=== PATIENT | male | born 1935 | race Caucasian/White ===

== ENCOUNTER → 2019-12-25 | Emergency (ER) | payer OTHER ==
[~2019-12-25] VITALS: Ht 180.3 cm; Wt 78.0 kg
[~2019-12-25] MED LIST: ARTIFICIAL TEAR15 M1 OPHTHALMIC; ASPIRIN EC325 M1 PO; ASPIRIN325 PO; ATENOLOL 25 MG25 M1 PO; CRESTOR10 MG PO; CRESTOR20 MG PO; FLUOCINONIDE15 G1; GLUCOPHAGE1000 MG PO; GLUCOPHAGE500 MG PO; IMDUR 30 MG TAB30 M1 PO; LEVOTHYROXINE0.05 MG PO; LIPITOR40 MG PO; NORFLEX100 MG PO; PLAVIX 75 MG TA75 M1 PO; TYLENOL325 M1 PO
[2019-12-25 16:56] LABS: ABSOLUTE NEUTROPHILS 3.3 thou/uL (1.4-8.2); BASOPHILS 0.4 % (0.0-2.0); HEMATOCRIT 36.6 % (42.0-52.0); HEMOGLOBIN 12.1 gm/dL (14.0-18.0); LYMPHOCYTES 19.4 % (24.0-44.0); MCH 31.5 pg (26.0-34.0); MCHC 33.1 g/dL (28.0-37.0); MCV 95.1 fL (80.0-100.0); MONOCYTES 7.5 % (1.0-8.0); PLATELET COUNT 130 thou/uL (150-400); POLYS 70.7 % (36.0-66.0); RBC 3.84 mil/uL (4.50-6.00); RDW 13.2 % (10.5-14.5); WBC 4.7 thou/uL (4.0-11.0)
[2019-12-25 17:08] LABS: ANION GAP 6 mmol/L (7-16); BUN 18 mg/dL (7-18); CALCIUM 8.6 mg/dL (8.5-10.1); CHLORIDE 99 mmol/L (98-107); CO2 27 mmol/L (21-32); CREATININE 1.3 mg/dL (0.7-1.3); GLUCOSE 394 mg/dL (74-106); POTASSIUM 4.8 mmol/L (3.5-5.1); SODIUM 132 mmol/L (136-145)
[2019-12-25 17:18] LABS: ALBUMIN 3.7 g/dL (3.4-5.0); DIRECT BILIRUBIN 0.1 mg/dL (<0.1-0.2); SGOT 14 U/L (15-37); SGPT 12 U/L (30-65); TOTAL BILIRUBIN 0.6 mg/dL (<0.1-1.0); TOTAL PROTEIN 6.9 g/dL (6.4-8.2); TROPONIN-I <0.06 ng/mL (<0.06)
[2019-12-25 17:45] LABS: URINE BILIRUBIN NEGATIVE (Negative); URINE BLOOD NEGATIVE (Negative); URINE CLARITY CLEAR; URINE COLOR YELLOW; URINE GLUCOSE-RANDOM* 3+ (Negative); URINE KETONES NEGATIVE (Negative); URINE LEUKOCYTES-REFLEX NEGATIVE (Negative); URINE NITRITE-REFLEX NEGATIVE (Negative); URINE PROTEIN (DIPSTICK) NEGATIVE (Negative); URINE UROBILINOGEN 0.2 E.U./dl (0.2-1.0)
[2019-12-25 18:30] VITALS: BP 127/63
== END ==
LOC: ER 16:06
PROVIDERS: Emergency Medicine
DX: S80.12XA Contusion of left lower leg, initial encounter (principal); S00.01XA Abrasion of scalp, initial encounter; E11.65 Type 2 diabetes mellitus with hyperglycemia; E78.00 Pure hypercholesterolemia, unspecified; V89.2XXA Person injured in unspecified motor-vehicle accident, traffic, initial encounter; Y93.89 Activity, other specified; Y92.89 Other specified places as the place of occurrence of the external cause; Y99.8 Other external cause status

== ENCOUNTER → 2020-12-04 | Outpatient (CLI) | payer OTHER ==
[~2020-12-04] MED LIST changes: +AMARYL2 MG PO; +HUMALOG100 UNIT/1 SUBQ; +LANTUS SUBQ; +METOPROLOL SUCC25 M1 PO; +RANOLAZINE ER500 MG PO; +VITAMIN B-12500 MCG PO; +VITAMIN D325 MC1 PO
== END ==
LOC: SJCVC 14:59
PROVIDERS: ATTEND Internal Medicine
DX: I25.10 Atherosclerotic heart disease of native coronary artery without angina pectoris (principal); I10 Essential (primary) hypertension; I65.23 Occlusion and stenosis of bilateral carotid arteries; E78.5 Hyperlipidemia, unspecified; E11.9 Type 2 diabetes mellitus without complications; Z79.82 Long term (current) use of aspirin; Z79.84 Long term (current) use of oral hypoglycemic drugs; Z79.899 Other long term (current) drug therapy

== ENCOUNTER 2020-12-20 12:27 | Inpatient (IN) | payer OTHER ==
[~2020-12-20] VITALS: Ht 180.3 cm; Wt 73.3 kg
[~2020-12-20 12:27] MED LIST changes: -AMARYL2 MG PO; -HUMALOG100 UNIT/1 SUBQ; -LANTUS SUBQ; -METOPROLOL SUCC25 M1 PO; -RANOLAZINE ER500 MG PO; -VITAMIN B-12500 MCG PO; -VITAMIN D325 MC1 PO
[2020-12-20 12:31] VITALS: BP 112/54
[2020-12-20] MEDS ORDERED: METOPROLOL SUCC25 M1 PO (12:34)
[2020-12-20] MEDS ORDERED: RANOLAZINE ER500 MG PO (12:36)
[2020-12-20] MEDS ORDERED: AMARYL2 MG PO (12:37)
[2020-12-20 13:21] LABS: ABSOLUTE NEUTROPHILS 10.8 thou/uL (1.4-8.2); BASOPHILS 0.4 % (0.0-2.0); EOSINOPHILS 0.1 % (0.0-3.0); HEMATOCRIT 31.8 % (42.0-52.0); HEMOGLOBIN 10.5 gm/dL (14.0-18.0); LYMPHOCYTES 5.8 % (24.0-44.0); MCH 30.6 pg (26.0-34.0); MCV 92.8 fL (80.0-100.0); MONOCYTES 7.2 % (1.0-8.0); PLATELET COUNT 153 thou/uL (150-400); POLYS 86.5 % (36.0-66.0); RBC 3.43 mil/uL (4.50-6.00); RDW 13.5 % (10.5-14.5); WBC 12.5 thou/uL (4.0-11.0)
[2020-12-20 13:39] LABS: ALBUMIN 3.2 g/dL (3.4-5.0); CALCIUM 8.9 mg/dL (8.5-10.1); CREATININE 1.7 mg/dL (0.7-1.3); POTASSIUM 3.5 mmol/L (3.5-5.1); TOTAL BILIRUBIN 0.8 mg/dL (0.2-1.0); TOTAL PROTEIN 6.7 g/dL (6.4-8.2)
[2020-12-20 14:18] LABS: URINE BILIRUBIN NEGATIVE (Negative); URINE BLOOD TRACE (Negative); URINE CLARITY CLEAR; URINE COLOR YELLOW; URINE GLUCOSE-RANDOM* 3+ (Negative); URINE KETONES 1+ (Negative); URINE LEUKOCYTES-REFLEX NEGATIVE (Negative); URINE NITRITE-REFLEX NEGATIVE (Negative); URINE PROTEIN (DIPSTICK) NEGATIVE (Negative); URINE UROBILINOGEN 0.2 E.U./dl (0.2-1.0)
--- NOTE | 2020-12-20 15:46 | NUR ---
FRIEND-SETH GUILLEN-[phone]. SETH WILL BE VISITOR IN HOSPITAL
[2020-12-20 16:24] LABS: CHOLESTEROL 173 mg/dL (<200); HDL CHOLESTEROL 53 mg/dL (>40); LDL CHOLESTEROL 84 mg/dL (<100); TC:HDL 3.3 Ratio (Not establshd); TRIGLYCERIDE 180 mg/dL (<150); VLDL 36 mg/dL (<40)
--- NOTE | 2020-12-20 16:47 | EKG ---
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: AARON : 1935 Requested By: Storm Turner Order Number: [id number] MD: Art Almaguer Measurements Intervals [place] Rate: 87 P: GA: QRS: 58 QRSD: 103 T: 246 QT: 376 QTc: 453 Interpretive Statements Atrial fibrillation Non specific ST-T changes Compared to ECG 12/20/2020 13:37:44 Ectopic atrial rhythm no longer present Possible ischemia still present Electronically Signed On 12-20-2020 16:47:35 HOME ECONOMICS EXPERT by Art Almaguer [email or web address] <ELECTRONICALLY SIGNED> By: Art Almaguer MD, [facility] 12/20/20 1647 26 26 Art Almaguer MD, FACC /EPI
--- NOTE | 2020-12-20 16:47 | EKG ---
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: : 1935 Requested By: Storm Turner Order Number: [id number] MD: Art Almaguer Measurements Intervals [place] Rate: 90 P: -59 SC: 197 QRS: 45 QRSD: 97 T: 220 QT: 342 QTc: 419 Interpretive Statements Sinus or ectopic atrial rhythm Repol abnrm suggests ischemia, diffuse leads Compared to ECG 03/19/2014 07:51:56 Ectopic atrial rhythm now present Early repolarization now present Sinus bradycardia no longer present ST (T wave) deviation no longer present Prolonged QT interval no longer present Possible ischemia still present Electronically Signed On 12-20-2020 16:47:04 WAREHOUSE SHIPPER by Art Almaguer [email or web address] <ELECTRONICALLY SIGNED> By: Art Almaguer MD, [facility] 12/20/20 1647 1337 36 Art Almaguer MD, [facility] /EPI
[2020-12-20 17:25] VITALS: BP 120/63
[2020-12-20 18:17] VITALS: BP 111/57
--- NOTE | 2020-12-20 20:00 | NUR ---
Pt. arrived to the unit earlier today from the emergency room. His bed alarm sounded and pt. needing the restroom. He ambulated to the bathroom with assistance of one. Now back in bed with bed alarm on.
--- NOTE | 2020-12-21 00:14 | NUR ---
Admission assessment and history is completed. Pt. offers no c/o pain or discomfort. Bed alarm is on.
[2020-12-21 07:44] VITALS: BP 104/59
--- NOTE | 2020-12-21 10:02 | 2DMMODE ---
[facility] [place] [address] 2 D/M-MODE ECHOCARDIOGRAM Name: MARTIN PIPER Room #: 460-P ADM IN M.R.#: [id number] Admission: 12/20/20 Attend Phys: Vi Caldwell MD Discharge: Date of : 34 Report #: [id number] THIS REPORT FOR: cc: Jacques Martinez MD, Christopher B. MD Lundgren, Craig H. MD [facility] ~ APPROVED REPORT Study performed: 12/21/2020 09:09:44 EXAM: Comprehensive 2D, Doppler, and color-flow Echocardiogram Patient Location: Bedside Room #: 460 Status: routine BSA: 1.97 HR: 79 bpm BP: 111/57 mmHg Rhythm: NSR Other Information Study Quality: Adequate Indications NSTEMI vs. Takotsubo. Hx: CABG, stents, DM, HLP. 2D Dimensions RVDd: 31.84 mm IVSd: 12.98 (7-11mm) LVOT Diam: 21.95 (18-24mm) LVDd: 54.19 mm PWd: 10.58 (7-11mm) Ascending Ao: 42.69 (22-36mm) LVDs: 43.13 (25-40mm) Left Atrium: 43.14 (27-40mm) Aortic Root: 38.33 mm Volumes Left Atrial Volume (Systole) Single Plane 4CH: 71.44 mL Single Plane 2CH: 43.09 mL LA ESV Index: 29.00 mL/m2 Aortic Valve AoV Peak Jt.: 0.95 m/s AO Peak Gr.: 3.59 mmHg LVOT Max P.21 mmHg LVOT Max V: 0.74 m/s [facility] [address] [address] 2 D/M-MODE ECHOCARDIOGRAM Name: MARTIN PIPER Room #: [address] [place] [address] [facility].#: [id number] Admission: 12/20/20 Attend Phys: Vi Caldwell Discharge: Date of : 34 Report #: [id number] PHILIP Vmax: 2.97 cm2 Mitral Valve E/A Ratio: 1.6 MV Decel. Time: 186.90 ms MV E Max Jt.: 0.80 m/s MV A Jt.: 0.50 m/s MV PHT: 54.20 ms IVRT: 58.82 ms Pulmonary Valve PV Peak Jt.: 1.34 m/s PV Peak Gr.: 7.23 mmHg Tricuspid Valve TR Peak Jt.: 2.24 m/s TR Peak Gr.: 20.10 mmHg Left Ventricle The left ventricle is normal size. There is normal left ventricular wall thickness. Left ventricular systolic function is mildly decreased. LVEF is 45-50%. Hypokinesis base of inferior and inferolateral schwarz. Moderate diastolic dysfunction Right Ventricle The right ventricle is normal size. The right ventricular systolic function is normal. Atria The left atrium size is normal. The right atrium size is normal. Aortic Valve The aortic valve is mildly calcified, trileaflet. No aortic regurgitation is present. There is no aortic valvular stenosis. Mitral Valve Moderate mitral annular calcification. Mild mitral regurgitation. No evidence of mitral valve stenosis. Tricuspid Valve The tricuspid valve is normal in structure. Trace tricuspid regurgitation. Estimated PAP is 25-30mmHg Pulmonic Valve The pulmonary valve is normal in structure. There is no pulmonic [facility] [address] [place] [address] 2 D/M-MODE ECHOCARDIOGRAM Name: MARTIN PIPER Room #: 460-P [facility] IN M.R.#: [id number] Admission: 12/20/20 Attend Phys: Vi Caldwell Discharge: Date of : 34 Report #: [id number] valvular regurgitation. Great Vessels Aortic root is borderline dilated. 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 IVC is not well visualized. Pericardium There is no pericardial effusion. <Conclusion> Left ventricular systolic function is mildly decreased. LVEF is 45-50%. Hypokinesis base of inferior and inferolateral schwarz. The aortic valve is mildly calcified, trileaflet. No aortic regurgitation or stenosis Moderate mitral annular calcification. Mild mitral regurgitation. Trace tricuspid regurgitation. 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 There is no pericardial effusion. <ELECTRONICALLY SIGNED> By: Bob Jackson MD, FACC 12/21/20 1002 1002 1002 Bob Jackson MD, FACC /INF
--- NOTE | 2020-12-21 14:11 | NUR ---
Received awake on bed. Due medications given as prescribed, able to swallow meds w/o difficulty. On telemetry; no complains and signs of chest pain, crushing sensation and heaviness. On room air. Vital signs stable. On carb controlled diet- assisted and encouraged in eating and drinking; no nausea, no vomiting and no abdominal pain noted. With on and off incontinence; checked frequently and changed as needed. Falls bundle in place. With SL at R FA. With edema at lower extremities- kept elevated. To continue monitoring patient. On blood sugar monitoring, taken and recorded accordingly; with sliding scale insulin ordered, given as prescribed. Pt's family friend visited this AM, wanted to be designated visitor; explained to her re: visitation policy and acknowledged understanding. Admission forms signed. To continue monitoring patient.
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
[2020-12-21 15:56] VITALS: BP 101/52
[2020-12-21 17:48] LABS: CALCIUM 8.3 mg/dL (8.5-10.1); CREATININE 1.5 mg/dL (0.7-1.3); POTASSIUM 3.4 mmol/L (3.5-5.1)
[2020-12-21 18:30] LABS: URINE BILIRUBIN 1+ (Negative); URINE BLOOD NEGATIVE (Negative); URINE CLARITY CLEAR; URINE COLOR YELLOW; URINE GLUCOSE-RANDOM* 2+ (Negative); URINE KETONES TRACE (Negative); URINE LEUKOCYTES-REFLEX NEGATIVE (Negative); URINE PROTEIN (DIPSTICK) 2+ (Negative); URINE SPECIFIC GRAVITY >= 1.030 (1.005-1.035); URINE UROBILINOGEN 0.2 E.U./dl (0.2-1.0)
[2020-12-21 18:35] LABS: URINE NITRITE-REFLEX POSITIVE (Negative)
[2020-12-21 18:42] LABS: CASTS None Seen /LPF (None Seen); SQUAMOUS None Seen /LPF (0-3)
[2020-12-21 18:43] LABS: CRYSTALS None Seen /LPF (None Seen); URINE RBC 3-10 Few /HPF (0-2)
[2020-12-21 20:30] VITALS: BP 100/57
[2020-12-22 00:06] LABS: GLYCOHEMOGLOBIN (HGB A1C) 8.1 % (4.8-5.6)
[2020-12-22 05:09] VITALS: BP 118/58; BP 141/78
[2020-12-22 05:25] LABS: CALCIUM 8.6 mg/dL (8.5-10.1); CREATININE 1.5 mg/dL (0.7-1.3); HEMATOCRIT 28.1 % (42.0-52.0); HEMOGLOBIN 9.4 gm/dL (14.0-18.0); MCHC 33.6 g/dL (28.0-37.0); MCV 92.2 fL (80.0-100.0); POTASSIUM 3.4 mmol/L (3.5-5.1); RBC 3.05 mil/uL (4.50-6.00); RDW 13.8 % (10.5-14.5)
[2020-12-22 06:03] VITALS: BP 106/57
--- NOTE | 2020-12-22 06:29 | NUR ---
Slept fair during the night . Denies any chest pain or discomfort. Voiding per urinal then had episode of incontinence this am. Assisted to reposition on bed for comfort due to generalized weakness. Bed alarm on for safety.
[2020-12-22 08:13] VITALS: BP 118/70
[2020-12-22 08:21] LABS: % SATURATION 12 % (20-39); IRON 26 ug/dL (65-175); TIBC 224 ug/dL (250-450)
--- NOTE | 2020-12-22 09:41 | EKG ---
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 12/22/20 0940 D: [id number] 6 Bob Jackson MD, FACC /EPI
--- NOTE | 2020-12-22 11:53 | NUR ---
Received awake on bed. Due medications given as prescribed, able to swallow meds w/o difficulty. On room air. Vital signs stable. On telemetry; no complains and signs of chest pain, crushing sensation and heaviness. Assisted in ADLs. On carb controlled diet- tolerating well; no nausea, no vomiting and no abdominal pain noted. On blood sugar monitoring, taken and recorded accordingly. With on and off incontinence; able to use urinal, output measured and recorded accordingly; checked frequently and changed as needed. Able to sit out on the chair. With NS at 50cc/hr, infusing well at R FA. With edema at bilateral lower extremities- kept elevated, reminded pt from time to time. No complains of pain made during assessment. Possible rehab admission- rehab liason informed. To continue monitoring patient.
--- NOTE | 2020-12-22 15:09 | NUR ---
CM MET WITH PT'S FRIEND SETH AT BEDSIDE THIS DAY. SHE IS ONE OF THE FAMILY FRIENDS THAT PT IS STAYING WITH CURRENTLY. SHE INDICATED THAT PREFERENCE IS FOR PT TO ULTIMATLY MOVE INTO HIS OWN [facility]. [facility] IS PREFERRED AND THEY ARE ASSESSING.
[2020-12-22 17:13] VITALS: BP 118/58
[2020-12-22 19:34] VITALS: BP 122/62
--- NOTE | 2020-12-23 04:38 | NUR ---
VSS-AFEBRILE. LUNGS CLEAR-ROOM AIR. C/O BURNING WITH URINATION, AND BLADDER SPASMS. BLADDER SCAN REVEALED <30ML WITH POST VOID REIDUAL CHECK. REFUSED ANY MEDICATION FOR PAIN OR SPASMS. ENCOURAGED FLUIDS URINE APPEARED VERY DARK AND CONCENTRATED. VERBALIZED UNDERSTANDING. FALL PRECAUTIONS IN PLACE, CALLS APPROPRIATELY FOR ANY NEEDED ASSISTANCE.
[2020-12-23 07:15] VITALS: BP 109/60
[2020-12-23 08:53] LABS: ALBUMIN 2.7 g/dL (3.4-5.0); CREATININE 1.5 mg/dL (0.7-1.3); PHOSPHORUS 3.1 mg/dL (2.5-4.9); POTASSIUM 3.9 mmol/L (3.5-5.1)
[2020-12-23 11:10] LABS: HEMATOCRIT 32.3 % (42.0-52.0); HEMOGLOBIN 10.6 gm/dL (14.0-18.0)
[2020-12-23] MEDS ORDERED: VITAMIN D325 MC1 PO (13:02)
[2020-12-23] MEDS ORDERED: LANTUS SUBQ (13:02)
[2020-12-23] MEDS ORDERED: VITAMIN B-12500 MCG PO (13:02)
--- NOTE | 2020-12-23 13:45 | NUR ---
FAXED REFERRAL TO [facility] SPOKE WITH JACQUES IN ADM SHE WILL REVIEW REFERRAL AND MOST LIKELY WILL NOT HAVE BED AVAILABLE TODAY AND SHOULD HAVE BED TOMORROW.
--- NOTE | 2020-12-23 15:29 | NUR ---
[facility] INDICATED THEY AREN'T ABLE TO ACCEPT PT. CM SPOKE WITH PT'S FRIEND SETH THIS AM AND NOTIFIED HER. CM SPOKE WITH PT'S DTR AND PT AND ALL WANT REFERRAL SENT TO [facility]. REFERRAL SENT. [facility] INDICATED THEY CAN ACCEPT BUT WILL LIKELY HAVE A BED TOMORROW. CM NOTIFIED PT, DTR, AND FRIEND. FAMILY HAD ASKED IF PT COULD BE SEEN BY PODIETRY. CM NOTIFIED PHYSICIAN AND SHE SAID NO. CM TO FOLLOW UP WITH [facility] AND FACILITATE DISCHARGE THERE TOMORROW.
[2020-12-23 16:17] VITALS: BP 126/69
--- NOTE | 2020-12-23 16:44 | NUR ---
PT A&OX4, VSS, DENIES PAIN. PATIENT TOLERATING DIET AND DENIES N/V. H&H STABLE, IV RIGHT FA AND PATENT. PATIENT ROOM AIR, NO SIGNS OF DISTRESS. WILL CONTINUE TO MONITOR.
[2020-12-23 19:49] VITALS: BP 118/58
--- NOTE | 2020-12-24 07:06 | NUR ---
VSS-AFEBRILE. LUNGS CLEAR-ROOM AIR. NO C/O PAIN. VOIDS PER URINAL, REPORTS LESS BURNING WITH URINATION. CALLS APPROPRIATELY FOR ANY NEEDED ASSISTANCE.
[2020-12-24] MEDS ORDERED: HUMALOG100 UNIT/1 SUBQ (08:53)
[2020-12-24] MEDS ORDERED: LANTUS SUBQ (08:53)
[2020-12-24 09:32] VITALS: BP 130/67
[2020-12-24 11:42] VITALS: BP 113/60
--- NOTE | 2020-12-24 13:11 | NUR ---
PT A&OX4, VSS, DENIES PAIN. PATIENT ROOM AIR AND SINUES RHYTHM ON THE TELE MONITOR. IV REMOVED FORM THE RIGHT FOREARM. PATIENT WORKED WITH PT AND OT TODAY. BLOOD SUGARS TAKEN ACHS. STUDENT IN TO HELP WITH CARES.
--- NOTE | 2020-12-24 15:00 | NUR ---
PT DISCHARGING TODAY TO [facility] FAXED DC ORDERS/SUMMARY TO FACILITY SPOKE WITH SHERRI IN ADM SHE RECEIVED ORDERS AND TRANSPORT ARRANGED BY [facility] FOR 1300. FAMILY NOTIFIED BY ENMANUEL CLEANING) UNIT NOTIFIED AND CHART COPY PER US. RN TO CALL REPORT TO [phone].
== END 2020-12-24 13:26 | DRG 280 ==
LOC: ER 12:27 → 4W 15:07 → EROBS 15:07 → 4W 18:24
PROVIDERS: Hospitalist; Internal Medicine; Internal Medicine Nephrology; Physician Assistant; ADMIT Internal Medicine; ATTEND Internal Medicine
DX: I21.4 Non-ST elevation (NSTEMI) myocardial infarction (principal); R65.11 Systemic inflammatory response syndrome (SIRS) of non-infectious origin with acute organ dysfunction; E87.1 Hypo-osmolality and hyponatremia; N39.0 Urinary tract infection, site not specified; I42.9 Cardiomyopathy, unspecified; I13.0 Hypertensive heart and chronic kidney disease with heart failure and stage 1 through stage 4 chronic kidney disease, or unspecified chronic kidney disease; N17.9 Acute kidney failure, unspecified; E78.00 Pure hypercholesterolemia, unspecified; I50.9 Heart failure, unspecified; E11.65 Type 2 diabetes mellitus with hyperglycemia; E03.9 Hypothyroidism, unspecified; E78.5 Hyperlipidemia, unspecified; N18.32 Chronic kidney disease, stage 3b; I25.10 Atherosclerotic heart disease of native coronary artery without angina pectoris; I65.29 Occlusion and stenosis of unspecified carotid artery; F32.9 Major depressive disorder, single episode, unspecified; E11.22 Type 2 diabetes mellitus with diabetic chronic kidney disease; Z20.822 Contact with and (suspected) exposure to COVID-19; E55.9 Vitamin D deficiency, unspecified; E53.8 Deficiency of other specified B group vitamins; D50.9 Iron deficiency anemia, unspecified; Z82.49 Family history of ischemic heart disease and other diseases of the circulatory system; Z79.82 Long term (current) use of aspirin; Z79.899 Other long term (current) drug therapy; Z87.891 Personal history of nicotine dependence; Z95.1 Presence of aortocoronary bypass graft; Z95.5 Presence of coronary angioplasty implant and graft
CPT/HCPCS: 10045

== ENCOUNTER 2021-01-28 14:22 | Inpatient (IN) | payer OTHER ==
[~2021-01-28] VITALS: Ht 180.3 cm; Wt 76.7 kg
[~2021-01-28 14:22] MED LIST changes: +AMARYL2 MG PO; +HUMALOG100 UNIT/1 SUBQ; +LANTUS SUBQ; +METOPROLOL SUCC25 M1 PO; +RANOLAZINE ER500 MG PO; +VITAMIN B-12500 MCG PO; +VITAMIN D325 MC1 PO
[2021-01-28 14:24] VITALS: BP 135/62
[2021-01-28 15:52] LABS: ABSOLUTE NEUTROPHILS 9.5 thou/uL (1.4-8.2); BASOPHILS 0.6 % (0.0-2.0); EOSINOPHILS 1.2 % (0.0-3.0); HEMATOCRIT 40.2 % (42.0-52.0); HEMOGLOBIN 13.2 gm/dL (14.0-18.0); LYMPHOCYTES 10.3 % (24.0-44.0); MCH 29.9 pg (26.0-34.0); MCHC 32.8 g/dL (28.0-37.0); MCV 91.3 fL (80.0-100.0); MONOCYTES 7.4 % (1.0-8.0); PLATELET COUNT 210 thou/uL (150-400); POLYS 80.5 % (36.0-66.0); RDW 14.2 % (10.5-14.5); WBC 11.8 thou/uL (4.0-11.0)
[2021-01-28 16:02] LABS: CALCIUM 9.2 mg/dL (8.5-10.1); CREATININE 1.3 mg/dL (0.7-1.3); POTASSIUM 4.1 mmol/L (3.5-5.1)
[2021-01-28 16:07] LABS: ALBUMIN 3.6 g/dL (3.4-5.0); TOTAL BILIRUBIN 0.8 mg/dL (0.2-1.0); TOTAL PROTEIN 7.3 g/dL (6.4-8.2)
[2021-01-28 18:43] VITALS: BP 122/71
[2021-01-28 19:15] VITALS: BP 146/68
[2021-01-28] MEDS ORDERED: METFORMIN HCL500 MG PO (22:46)
[2021-01-28 23:30] VITALS: BP 122/67
[2021-01-29 00:12] LABS: URINE BILIRUBIN NEGATIVE (Negative); URINE BLOOD NEGATIVE (Negative); URINE CLARITY CLEAR; URINE COLOR YELLOW; URINE GLUCOSE-RANDOM* NEGATIVE (Negative); URINE KETONES NEGATIVE (Negative); URINE LEUKOCYTES-REFLEX NEGATIVE (Negative); URINE NITRITE-REFLEX NEGATIVE (Negative); URINE PROTEIN (DIPSTICK) TRACE (Negative); URINE SPECIFIC GRAVITY 1.015 (1.005-1.035); URINE UROBILINOGEN 0.2 E.U./dl (0.2-1.0)
[2021-01-29 03:55] VITALS: BP 115/66
[2021-01-29 04:21] LABS: CALCIUM 8.4 mg/dL (8.5-10.1); CREATININE 1.2 mg/dL (0.7-1.3); POTASSIUM 3.5 mmol/L (3.5-5.1)
[2021-01-29 04:35] LABS: HEMATOCRIT 35.8 % (42.0-52.0); HEMOGLOBIN 11.9 gm/dL (14.0-18.0); MCH 30.5 pg (26.0-34.0); MCHC 33.4 g/dL (28.0-37.0); MCV 91.2 fL (80.0-100.0); RBC 3.92 mil/uL (4.50-6.00); RDW 14.3 % (10.5-14.5); WBC 9.3 thou/uL (4.0-11.0)
--- NOTE | 2021-01-29 06:03 | NUR ---
Arrived from ER around 1900. Med rec completed and verified with pt. IV on left upper arm infiltrated. New IV placed on right FA , IV fluids started and IV ABT given. Incontinent of large yellow brown bm . Voided per urinal. Urine sample sent to lab. He slept well during the night. SCD's in place and bed alarm on.
[2021-01-29 07:49] VITALS: BP 108/52
--- NOTE | 2021-01-29 15:46 | NUR ---
Met with patient who resides at [facility]. 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 Rolator walker in patients room at this time. Patient reports therapy 2x a week at facility. Patients dtr lives out of town he is concerned with transportation for return. Left message with [facility]. Have not rec return call. Patient anticipates dc tomorrow. At discharge please call [place] at [phone] alert of discharge of patient. Give report. Obtain a chart copy Call [facility] and set up wheel chair van transport [phone]
--- NOTE | 2021-01-29 16:10 | NUR ---
Patient also on service with Sarah CHRIST[facility]. Call Sarah [facility]RIST[facility] and alert of discharge and fax orders [facility] [phone] p [phone] f
[2021-01-29 16:22] VITALS: BP 98/48
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
[2021-01-29 20:17] VITALS: BP 114/50
--- NOTE | 2021-01-30 00:10 | NUR ---
up to the bsc this early am having a bm. continues on iv antibiotics. stated that he will refuse to go home tomorrow. he stated that he does not feel well. he is very dramatic about having abm
[2021-01-30 05:06] VITALS: BP 94/47
[2021-01-30 05:21] LABS: HEMATOCRIT 31.4 % (42.0-52.0); HEMOGLOBIN 10.6 gm/dL (14.0-18.0); MCH 30.9 pg (26.0-34.0); MCHC 33.7 g/dL (28.0-37.0); MCV 91.6 fL (80.0-100.0); RBC 3.43 mil/uL (4.50-6.00); RDW 14.4 % (10.5-14.5)
[2021-01-30 05:29] LABS: CALCIUM 8.3 mg/dL (8.5-10.1); CREATININE 1.4 mg/dL (0.7-1.3); POTASSIUM 3.4 mmol/L (3.5-5.1)
[2021-01-30 07:43] VITALS: BP 103/52
[2021-01-30 15:28] VITALS: BP 105/54
[2021-01-31 03:55] VITALS: BP 141/57
[2021-01-31 07:34] VITALS: BP 118/62
[2021-01-31 17:57] VITALS: BP 107/51
--- NOTE | 2021-01-31 18:19 | NUR ---
PATIENT HAS BEEN VERY ACTIVE TODAY. WALKED ABOUT THE UNIT FOR EXTENSIVE PERIODS. OCCASIONAL INCONTINENCE BUT HE HAS BEEN IMPROVING TODAY HAVING FAR LESS INCONTINENCE TODAY. CONT WITH PLAN OF CARE.
--- NOTE | 2021-01-31 21:37 | NUR ---
PT ALERT AND ORIENTED X4. VSS AFEBRILE. HRR SR 1' AVB AND PROLONED QT AND QTC INTERVAL. NOTIFIED MAYA OUTSIDE CUTTER HEAD OF MARKETING ADOMETRY REGARDING PT BEING ON RANOLIZINE WITH CIPRO AND FLAGY AND PROLONGED QT AND QTC. SHE STATED TO GO AHEAD AND GIVE ALL HIS MEDS AND SHE WOULD TELL HIS DR IN AM. PT ASYMTOMATIC. HE IS DRINKING GOLYTELY PREP FOR COLONOSCOPY TOMORROW. NO BLEEDING NOTED.
[2021-02-01 05:26] VITALS: BP 132/63
[2021-02-01 05:27] LABS: HEMATOCRIT 32.6 % (42.0-52.0); MCH 30.6 pg (26.0-34.0); MCHC 33.7 g/dL (28.0-37.0); MCV 90.8 fL (80.0-100.0); RBC 3.59 mil/uL (4.50-6.00); RDW 14.3 % (10.5-14.5); WBC 6.4 thou/uL (4.0-11.0)
[2021-02-01 05:51] LABS: CALCIUM 8.1 mg/dL (8.5-10.1); CREATININE 1.2 mg/dL (0.7-1.3); POTASSIUM 3.8 mmol/L (3.5-5.1)
--- NOTE | 2021-02-01 05:51 | NUR ---
VSS AFEBRILE THIS AM. NO C/O PAIN. PT NPO FOR COLONOSCOPY. NS AT 75 ML / HR. P STILL HAVING LG AMTS LIGHT BROWN STOOL AFTER GOLYTELY PREP. NO BLEEDING NOTED. C/O NOT BEING ABLE TO SLEEP VERY MUCH. HE IS RESTING QUIETLY PRESENTLY TRYING TO GET BACK TO SLEEP. BED ALARM IS IN.
[2021-02-01 07:33] VITALS: BP 133/67
--- NOTE | 2021-02-01 11:31 | NUR ---
pt off unit for procedure. telemetry on standby
[2021-02-01 14:22] VITALS: BP 144/66
--- NOTE | 2021-02-01 15:12 | NUR ---
ENMANUEL reviewed chart and spoke with nursing and attending physician. Pt is on IV abx. Pt had COVID test earlier today, which was negative. Pt had colonoscopy. Discharge is anticipated for tomorrow. ENMANUEL met with pt at bedside to discuss discharge plan: post-acute placement v. Home with . Pt states that he feels weak today and will see how he does with therapy. Pt is open to going to SNF if needed. Pt is currently on service with [facility] and he resides at [facility]. ENMANUEL is following to assist as needed with discharge planning.
[2021-02-01 15:44] VITALS: BP 160/57
[2021-02-01 19:38] VITALS: BP 136/48
[2021-02-02 04:01] VITALS: BP 108/48
--- NOTE | 2021-02-02 07:21 | NUR ---
PT PROGRESSING TOWARDS D/C GOALS. VSS AFEBRILE. PT ANXIOUS TO GO BACK HOME. VOIDS CLEAR YELLOW URINE IN ADEQUATE AMTS. NO BM LAST NIGHT. NO S/S DISTRESS.
[2021-02-02 07:40] VITALS: BP 135/79
--- NOTE | 2021-02-02 08:05 | NUR ---
Note Given: Y Facility List Provided:Y Facility Jessie: None chosen at this time Ellie Bass NP discussed BPCI with fredo ferguson 02/01/21
--- NOTE | 2021-02-02 15:00 | NUR ---
ENMANUEL reviewed chart and spoke with nursing and attending physician. Pt is progressing towards goals for discharge. Recommendation made for pt to discharge home and resume HH services. ENMANUEL met with pt at bedside, who states that he was told he was going to [facility] for rehab. SW explained that pt is doing well with therapy and is safe to return to his apt with HH. Pt requesting [facility] eval. ENMANUEL updated attending physician. [facility] consult ordered. ENMANUEL discussed case with [facility] certified rehabilitation counselor, who states pt is too high level for admission to [facility]. ENMANUEL met with pt and friend, Barb, at bedside to provide update. Pt states he is agreeable with discharging home with HH tomorrow. 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 ENMANUEL updated attending physician and pt's nurse. ENMANUEL updated [facility] liaison. ENMANUEL is following to assist as needed with discharge planning.
--- NOTE | 2021-02-02 15:59 | NUR ---
PT UP IN THE CHAIR, DAUGHTER IN ROOM VISISTING. PT PROGRESSING TOWARDS CARE. ANTICIPATING FOR D/C WITH HOME HEALTH SOON. DENIES ANY NEEDS GALE.
[2021-02-03 03:48] VITALS: BP 119/62
--- NOTE | 2021-02-03 03:48 | NUR ---
RESTING QUIETLY TONIGHT. HE IS ANTISIPCATING DISCHARGE TODAY. NO COMPLAINTS OF PAIN. CAREPLAN REVIEWED.
[2021-02-03 05:26] LABS: CALCIUM 8.2 mg/dL (8.5-10.1); CREATININE 1.3 mg/dL (0.7-1.3); POTASSIUM 3.3 mmol/L (3.5-5.1)
[2021-02-03 05:27] LABS: HEMATOCRIT 31.8 % (42.0-52.0); HEMOGLOBIN 10.9 gm/dL (14.0-18.0); MCH 30.9 pg (26.0-34.0); MCHC 34.3 g/dL (28.0-37.0); MCV 89.9 fL (80.0-100.0); RBC 3.53 mil/uL (4.50-6.00); RDW 14.2 % (10.5-14.5); WBC 5.6 thou/uL (4.0-11.0)
[2021-02-03 07:51] VITALS: BP 173/93
[2021-02-03 11:04] VITALS: BP 173/93
[2021-02-03] MEDS ORDERED: CIPRO500 M1 PO (13:30)
[2021-02-03] MEDS ORDERED: FLAGYL500 M1 PO (13:30)
[2021-02-03 13:57] VITALS: BP 173/93
--- NOTE | 2021-02-03 14:09 | NUR ---
DISCHARGE NOTE: ENMANUEL reviewed chart and spoke with nursing and attending physician. Pt is medically stable for discharge back to [facility] with [facility]. ENMANUEL met with pt at bedside to discuss discharge plan. Pt is aware and in agreement with plan. Pt states he will have transportation back to his apt. ENMANUEL faxed discharge orders/summary to [facility] and spoke with Kena in intake to notify of pt's discharge. ENMANUEL also faxed d/c ppwk to [facility] and notified [place] liason of pt's discharge. Contact info for HH placed in pt's discharge summary. No additional SW needs identified at this time, but is available to assist should needs arise.
--- NOTE | 2021-02-03 14:31 | NUR ---
DISCHARGE PAPEROWRK AND NEW MED REVIEW WITH PT AND DAUGHTER. IV DISCONTINNUED. PT TAKEN DOWN VIA WHEELCHAIR.
--- NOTE | 2021-02-05 14:07 | PATH ---
[facility] [address] [place] [address] PATHOLOGY RPT PROCEDURE Name: BOGDAN QUINTANA Room #: 359-P DIS IN M.R.#: [id number] Admission: 01/28/21 Date of : 33 Discharge: 02/03/21 Report #: [id number] Path Case #: [id number] [facility] Accession Number: [id number] . 01 Material submitted: . PART A: cecum - BIOPSY CECUM POLYP PART B: gastrointestinal site - BIOPSY SUSPECTED ISCHEMIC COLITIS . 01 Clinical history: . PRE-OP DIAGNOSIS: LEFT COLITIS, DIARRHEA POST-OP DIAGNOSIS: POLYP, ISCHEMIC COLITIS, INTERNAL HEMORRHOIDS . 02 Diagnosis: A. Polyp, cecum polyp, endoscopic biopsy: - Tubular adenoma. - Negative for high-grade dysplasia. . B. Large intestinal mucosa, suspected ischemic colitis, endoscopic biopsy: - Fibrotic lamina propria along with reactive crypts. - Negative for active inflammation or ulceration. - Negative for dysplasia or malignancy. . (IUV:queta; 02/05/2021) MBR 02/05/2021 1218 Local . 02 Comment: B. The differential diagnosis includes resolving episode of active colitis, or ischemic colitis, or pseudomembranous colitis, or medication induced colitis or chronic diverticulitis. Clinical correlation is suggested. (IUV:assistant dean; 02/05/2021) . 02 Electronically signed: . Dot Glynn MD, Pathologist NPI- [id number] . 01 Gross description: . A. The specimen is received in formalin, labeled "Bogdan Quintana", "biopsy cecum polyp". Received are multiple segments of pale garcia tissue ranging in size from 0.1 cm to 0.2 cm. The specimen is entirely submitted in cassette A1. . B. The specimen is received in formalin, labeled "Bogdan Quintana", "biopsy suspected ischemic colitis". Received are multiple segments of pale garcia tissue ranging in size from 0.5 cm to 0.6 cm. The specimen is entirely submitted in cassette B1.([facility]; 02/04/2021) [place] [address] PATHOLOGY RPT PROCEDURE Name: BOGDAN QUINTANA Room #: 359-P DIS IN M.R.#: [id number] Admission: 01/28/21 Date of : 33 Discharge: 02/03/21 Report #: [id number] Path Case #: [id number] [facility]/JOSEPH 02/04/2021 0952 Local . 02 Pathologist provided ICD-10: D12.0, R19.7, R10.9, K62.5 . 02 CPT . 135651, 659109 Specimen Comment: A courtesy copy of this report has been sent to [phone], [phone] Specimen Comment: [phone], Specimen Comment: Report sent to ,DR TORRES / DR IZQUIERDO Performed at: [address], [place] [id number] MD Francisco Bauman MD Phone: [phone] Performed at: [address] [id number] MD Dot Glynn MD Phone: [phone]
== END 2021-02-03 14:33 | disposition home health service (06) | DRG 386 ==
LOC: ER 14:22 → 3W 18:32 → EROBS 18:32 → 3W 18:52
PROVIDERS: Internal Medicine Gastroenterology; Physician Assistant; ADMIT Hospitalist; ATTEND Hospitalist
PROC: 0DBH8ZX Excision of Cecum, Via Natural or Artificial Opening Endoscopic, Diagnostic (ICD-10-PCS; principal; 2021-02-01)
DX: K51.00 Ulcerative (chronic) pancolitis without complications (principal); K62.5 Hemorrhage of anus and rectum; K55.9 Vascular disorder of intestine, unspecified; D12.0 Benign neoplasm of cecum; K52.9 Noninfective gastroenteritis and colitis, unspecified; I25.10 Atherosclerotic heart disease of native coronary artery without angina pectoris; E78.00 Pure hypercholesterolemia, unspecified; E11.40 Type 2 diabetes mellitus with diabetic neuropathy, unspecified; E78.5 Hyperlipidemia, unspecified; K64.8 Other hemorrhoids; I50.9 Heart failure, unspecified; E03.9 Hypothyroidism, unspecified; I11.0 Hypertensive heart disease with heart failure; Z20.822 Contact with and (suspected) exposure to COVID-19; Z79.4 Long term (current) use of insulin; Z79.82 Long term (current) use of aspirin; Z95.5 Presence of coronary angioplasty implant and graft; Z95.1 Presence of aortocoronary bypass graft; Z79.899 Other long term (current) drug therapy; Z79.01 Long term (current) use of anticoagulants
CPT/HCPCS: 10080; 10879; 62110; 62900; 70005

== ENCOUNTER 2021-07-23 18:08 | Emergency (ER) | payer OTHER ==
[~2021-07-23] VITALS: Ht 177.8 cm; Wt 74.8 kg
--- NOTE | ~2021-07-23 | EMS ---
[place] [address] EMS Patient Care Report Name: MARTIN PIPER Room #: REG CHARANJIT Arrieta#: [id number] Admission: 07/23/21 Attend Phys: Discharge: Date of : 34 Report #: [id number] THIS REPORT FOR: //name// Report Transmitted: 07/23/2021 17:46 EMS Care Summary [place], [place]/[facility] Incident [id number] @ 07/23/2021 17:30 Incident Location [address] [place] [address] Patient CHRISTIAN PIPER Male, 86 Years 1935 Patient Address [address] [place] [address] Patient History Diabetes, Patient Allergies No known allergies, Patient Medications Aspirin, Metformin, Levothyroxine, Acetaminophen, Plavix, Chief Complaint Back pain Disposition Transported No Lights/[place] Dispatch Reason Back Pain (Non-Traumatic) Transported To [facility] Narrative Medic 36 Dispatch to Back Pain. Pt was sitting in chair on arrival. Pt chief complaint was throbbing back pain and also had a lark bruise on his right elbow. Pt said fell two days ago and was not getting any better. [address] [address] EMS Patient Care Report Name: MARTIN PIPER Room #: REG CHARANJIT Arrieta#: [id number] Admission: 07/23/21 Attend Phys: Discharge: Date of : 34 Report #: [id number] Pt was transported to ambulance without incident. Pt vitals were monitored in route to [facility]. Places a surgical mask on pt in ambulance. Pt transported to ER staff without incident. Initial Vitals @17:41P: 80,R: 18,BP: 161/89,Pain: 8/10,GCS: 15,CO: 0,SpO2: 98,Revised Trauma: 12, @17:42P: 80,R: 18,BP: 173/88,Pain: 8/10,GCS: 15,CO: 1,SpO2: 97,Revised Trauma: 12, Assessments @17:40MENTAL:Place Oriented,Time Oriented,Person Oriented,Event Oriented,SKIN:HEENT:Head/Face: No Abnormalities,Neck/Airway: No Abnormalities,LUNG SOUNDS:General: No Abnormalities,Left Upper: No Abnormalities,Right Upper: No Abnormalities,Left Lower: No Abnormalities,Right Lower: No Abnormalities,ABDOMEN:General: No Abnormalities,Left Upper: No Abnormalities,Right Upper: No Abnormalities,Left Lower: No Abnormalities,Right Lower: No Abnormalities,PELVIS//GI:No Abnormalities,EXTREMITIES:Left Arm: No Abnormalities,Right Arm: No Abnormalities,Left Leg: No Abnormalities,Right Leg: No Abnormalities,PULSE:NEURO:No Abnormalities, Impression Back Pain Procedures @17:42BLS Assessment Timeline 17:25,Call Received 17:25,Dispatch Notified 17:30,Dispatched 17:31,En Route 17:38,On Scene 17:40,At Patient 17:41,Depart Scene 17:41,BP: 161/89 M,PULSE: 80,RR: 18 R,SPO2: 98 Ox,ETCO2: ,BG: ,PAIN: 8,GCS: 15, 17:42,BLS Assessment, 17:42,BP: 173/88 M,PULSE: 80,RR: 18 R,SPO2: 97 Ox,ETCO2: ,BG: ,PAIN: 8,GCS: 15, 17:44,At Destination 17:50,Call Closed Disclaimer v1.1 Copyright 2020 [employer] This EMS Care Summary contains data elements from the applicable legal record (which may be displayed differently). It is designed to provide pertinent [facility] [address] [address] EMS Patient Care Report Name: PIPER,MARTIN Room #: REG Meenakshi#: [id number] Admission: 07/23/21 Attend Phys: Discharge: Date of : 34 Report #: [id number] information for the following purposes: continuity of care, clinical quality, and state data reporting. The complete legal record is available to ED staff and administrators of the receiving hospital in [employer]'s Patient Tracker. All data is provided "as is."
[~2021-07-23 18:08] MED LIST changes: +CIPRO500 M1 PO; +FLAGYL500 M1 PO; +METFORMIN HCL500 MG PO
[2021-07-23 21:27] VITALS: BP 142/88
== END 2021-07-23 21:20 | disposition home or self-care (01) ==
LOC: ER 18:08
DX: S33.5XXA Sprain of ligaments of lumbar spine, initial encounter (principal); S50.01XA Contusion of right elbow, initial encounter; E11.9 Type 2 diabetes mellitus without complications; E78.00 Pure hypercholesterolemia, unspecified; I50.9 Heart failure, unspecified; N39.0 Urinary tract infection, site not specified; Z79.82 Long term (current) use of aspirin; Z79.899 Other long term (current) drug therapy; W19.XXXA Unspecified fall, initial encounter; Y93.89 Activity, other specified; Y92.89 Other specified places as the place of occurrence of the external cause; Y99.8 Other external cause status

== ENCOUNTER 2021-12-07 14:20 | Inpatient (IN) | payer OTHER ==
[~2021-12-07] VITALS: Ht 180.3 cm; Wt 83.2 kg
--- NOTE | ~2021-12-07 | EMS ---
[place] [id number] EMS Patient Care Report Name: MARTIN PIPER Room #: 362-P [facility] IN M.RAnna Marie#: [id number] Admission: 12/07/21 Attend Phys: Reginald Llamas MD Discharge: 12/12/21 Date of : 34 Report #: [id number] THIS REPORT FOR: //name// Report Transmitted: 12/14/2021 15:39 EMS Care Summary [place], [place]/[facility] Incident [id number] @ 12/07/2021 13:51 Incident Location [address] [place] [address] Patient ALINA PIPER Male, 86 Years 1935 Patient Address [address] [place] [address] Patient History Congestive Heart Failure (CHF),Diabetes, Patient Allergies No known allergies, Chief Complaint GENERALIZED WEAKNESS Disposition Transported No Lights/[place] Dispatch Reason Breathing Problem Transported To [facility] Narrative M41 WAS DISPATCHED FOR BREATHING PROBLEMS. UPON ARRIVAL EMS WAS MET AT THE DOOR BY THE PT FAMILY. FAMILY INFORMED EMS THAT THE PT HAS HAD A COLD FOR THE PAST TWO WEEKS AND THAT TODAY HE BECAME VERY WEAK. THE PT WAS UNABLE TO GET HIMSELF TO AND FROM THE RESTROOM ON HIS OWN. [facility] [place] [address] EMS Patient Care Report Name: MARTIN PIPER Room #: 362-P [facility] IN M.R.#: [id number] Admission: 12/07/21 Attend Phys: Reginald Llamas MD Discharge: 12/12/21 Date of : 34 Report #: [id number] MOVED TO THE AMBULANCE. THE PT INFORMED EMS THAT HE FELT VERY WEAK, BUT DID NOT FEEL SHORT OF BREATH, NOR DID HE HAVE ANY PAIN ANYWHERE. THE PT DID INFORM EMS THAT HE HAD BEEN HAVING DIARHEA THAT DAY. THE PT WAS TRANSPORTED TO THE HOSPITAL AND MONITORED ENROUTE. THE PT WAS TRANSFERRED TO HOSPITAL STAFF WITH A REPORT. EMS RETURNED TO SERVICE. Initial Vitals @14:10P: 97,R: 16,BP: 183/80,Pain: 0/10,GCS: 15,CO: 0,SpO2: 96,Revised Trauma: 12,[place] Suspected: false @14:02P: 106,R: 16,BP: 167/82,Pain: 0/10,GCS: 15,Glucose: 403,CO: 0,SpO2: 92,Revised Trauma: 12,[place] Suspected: false Assessments @13:57MENTAL:Place Oriented,Event Oriented,Person Oriented,Time Oriented,SKIN:HEENT:Head/Face: No Abnormalities,Neck/Airway: No Abnormalities,LUNG SOUNDS:General: Diarrhea,ABDOMEN:General: Diarrhea,PELVIS//GI:No Abnormalities,EXTREMITIES:Left Arm: No Abnormalities,Right Arm: No Abnormalities,Left Leg: No Abnormalities,Right Leg: No Abnormalities,PULSE:Radial: 2+ Normal,NEURO:No Abnormalities, Impression Acute Respiratory Distress (Dyspnea) Procedures @13:57 ALS Assessment Response: UnchangedSucceeded @14:03 Oxygen FlowRate: 4 Device: Nasal Cannula (NC) Response: ImprovedSucceeded @14:02 3-Lead ECG Response: UnchangedSucceeded Timeline 13:50,Call Received 13:50,Dispatch Notified 13:51,Dispatched 13:52,En Route 13:56,On Scene 13:57,At Patient 13:57,ALS Assessment,Response: UnchangedSucceeded, 14:02,3-Lead ECG,Response: UnchangedSucceeded, 14:02,BP: 167/82 M,PULSE: 106,RR: 16 R,SPO2: 92 Ox,ETCO2: ,B,PAIN: 0,GCS: 15, 14:03,Oxygen FlowRate: 4 Device: Nasal Cannula (NC) Response: ImprovedSucceeded, 14:10,BP: 183/80 M,PULSE: 97,RR: 16 R,SPO2: 96 Ox,ETCO2: ,BG: ,PAIN: 0,GCS: 15, 14:18,Depart Scene 14:18,At Destination 14:27,Call Closed [facility] [address] [place] [address] EMS Patient Care Report Name: MARTIN PIPER Room #: 362-P [facility] IN M.R.#: [id number] Admission: 12/07/21 Attend Phys: Reginald Llamas MD Discharge: 12/12/21 Date of : 34 Report #: [id number] Disclaimer v1.1 Copyright 202 [employer] This EMS Care Summary contains data elements from the applicable legal record (which may be displayed differently). It is designed to provide pertinent information for the following purposes: continuity of care, clinical quality, and state data reporting. The complete legal record is available to ED staff and administrators of the receiving hospital in [employer]'s Patient Tracker. All data is provided "as is."
--- NOTE | ~2021-12-07 | EMS ---
[place] [id number] EMS Patient Care Report Name: MARTIN PIPER Room #: 362-P ADM IN M.R.#: [id number] Admission: 12/07/21 Attend Phys: Reginald Llamas MD Discharge: Date of : 34 Report #: [id number] THIS REPORT FOR: //name// Report Transmitted: 12/08/2021 12:50 EMS Care Summary [place], [place] Incident [id number] @ 12/07/2021 13:51 Incident Location [address] [place] [address] Patient ALINA PIPER Male, 86 Years 1935 Patient Address [address] [place] [address] Patient History Congestive Heart Failure (CHF),Diabetes, Patient Allergies No known allergies, Chief Complaint GENERALIZED WEAKNESS Disposition Transported No Lights/[place] Dispatch Reason Breathing Problem Transported To [facility] Narrative M41 WAS DISPATCHED FOR BREATHING PROBLEMS. UPON ARRIVAL EMS WAS MET AT THE DOOR BY THE PT FAMILY. FAMILY INFORMED EMS THAT THE PT HAS HAD A COLD FOR THE PAST TWO WEEKS AND THAT TODAY HE BECAME VERY WEAK. THE PT WAS UNABLE TO GET HIMSELF TO AND FROM THE RESTROOM ON HIS OWN. THE PT WAS PLACED ON THE [facility] [place] [address] EMS Patient Care Report Name: MARTIN PIPER Room #: 362-P [facility] IN ..#: [id number] Admission: 12/07/21 Attend Phys: Reginald Llamas MD Discharge: Date of : 34 Report #: [id number] MOVED TO THE AMBULANCE. THE PT INFORMED EMS THAT HE FELT VERY WEAK, BUT DID NOT FEEL SHORT OF BREATH, NOR DID HE HAVE ANY PAIN ANYWHERE. THE PT DID INFORM EMS THAT HE HAD BEEN HAVING DIARHEA THAT DAY. THE PT WAS TRANSPORTED TO THE HOSPITAL AND MONITORED ENROUTE. THE PT WAS TRANSFERRED TO HOSPITAL STAFF WITH A REPORT. EMS RETURNED TO SERVICE. Initial Vitals @14:10P: 97,R: 16,BP: 183/80,Pain: 0/10,GCS: 15,CO: 0,SpO2: 96,Revised Trauma: 12,[place] Suspected: false @14:02P: 106,R: 16,BP: 167/82,Pain: 0/10,GCS: 15,Glucose: 403,CO: 0,SpO2: 92,Revised Trauma: 12,[place] Suspected: false Assessments @13:57MENTAL:Time Oriented,Person Oriented,Event Oriented,Place Oriented,SKIN:HEENT:Head/Face: No Abnormalities,Neck/Airway: No Abnormalities,LUNG SOUNDS:General: Diarrhea,ABDOMEN:General: Diarrhea,PELVIS//GI:No Abnormalities,EXTREMITIES:Left Arm: No Abnormalities,Right Arm: No Abnormalities,Left Leg: No Abnormalities,Right Leg: No Abnormalities,PULSE:Radial: 2+ Normal,NEURO:No Abnormalities, Impression Acute Respiratory Distress (Dyspnea) Procedures @13:57 ALS Assessment Response: UnchangedSucceeded @14:03 Oxygen FlowRate: 4 Device: Nasal Cannula (NC) Response: ImprovedSucceeded @14:02 3-Lead ECG Response: UnchangedSucceeded Timeline 13:50,Call Received 13:50,Dispatch Notified 13:51,Dispatched 13:52,En Route 13:56,On Scene 13:57,At Patient 13:57,ALS Assessment,Response: UnchangedSucceeded, 14:02,3-Lead ECG,Response: UnchangedSucceeded, 14:02,BP: 167/82 M,PULSE: 106,RR: 16 R,SPO2: 92 Ox,ETCO2: ,B,PAIN: 0,GCS: 15, 14:03,Oxygen FlowRate: 4 Device: Nasal Cannula (NC) Response: ImprovedSucceeded, 14:10,BP: 183/80 M,PULSE: 97,RR: 16 R,SPO2: 96 Ox,ETCO2: ,BG: ,PAIN: 0,GCS: 15, 14:18,Depart Scene 14:18,At Destination 14:27,Call Closed [facility] [address] [place] [address] EMS Patient Care Report Name: MARTIN PIPER Room #: 362-P [facility] IN M.R.#: [id number] Admission: 12/07/21 Attend Phys: Reginald Llamas MD Discharge: Date of : 34 Report #: [id number] Disclaimer v1.1 Copyright 2021 [employer] This EMS Care Summary contains data elements from the applicable legal record (which may be displayed differently). It is designed to provide pertinent information for the following purposes: continuity of care, clinical quality, and state data reporting. The complete legal record is available to ED staff and administrators of the receiving hospital in [employer]'s Patient Tracker. All data is provided "as is."
[2021-12-07 14:22] VITALS: BP 138/66
[2021-12-07 14:42] LABS: MCH 31.6 pg (26.0-34.0)
[2021-12-07 14:43] LABS: HEMATOCRIT 34.8 % (42.0-52.0); HEMOGLOBIN 11.9 gm/dL (14.0-18.0); MCHC 34.3 g/dL (28.0-37.0); MCV 92.3 fL (80.0-100.0); RBC 3.77 mil/uL (4.50-6.00); RDW 14.2 % (10.5-14.5); WBC 9.4 thou/uL (4.0-11.0)
[2021-12-07] MEDS ORDERED: METFORMIN HCL1000 MG PO (14:53)
[2021-12-07 14:58] LABS: URINE BILIRUBIN NEGATIVE (Negative); URINE BLOOD TRACE (Negative); URINE CLARITY CLEAR; URINE COLOR YELLOW; URINE GLUCOSE-RANDOM* 3+ (Negative); URINE KETONES 1+ (Negative); URINE LEUKOCYTES-REFLEX NEGATIVE (Negative); URINE NITRITE-REFLEX NEGATIVE (Negative); URINE PROTEIN (DIPSTICK) 2+ (Negative); URINE SPECIFIC GRAVITY 1.025 (1.005-1.035)
[2021-12-07 15:03] LABS: CALCIUM 7.7 mg/dL (8.5-10.1); CREATININE 1.6 mg/dL (0.7-1.3); POTASSIUM 4.6 mmol/L (3.5-5.1)
[2021-12-07 15:11] LABS: BACTERIA-REFLEX 1-9 Few /HPF (None Seen); CRYSTALS None Seen /LPF (None Seen); HYALINE CASTS 0-3 Few /LPF (None Seen); SQUAMOUS 0-3 Few /LPF (0-3); URINE RBC None Seen /HPF (NONE SEEN); URINE WBC-REFLEX 0-5 Rare /HPF (0-5)
[2021-12-07 15:12] LABS: ALBUMIN 3.2 g/dL (3.4-5.0); MAGNESIUM 1.8 mg/dL (1.8-2.4); TOTAL BILIRUBIN 0.6 mg/dL (0.2-1.0); TOTAL PROTEIN 6.5 g/dL (6.4-8.2)
--- NOTE | 2021-12-07 15:22 | NUR ---
PT PLACED ON 2L NC.
--- NOTE | 2021-12-07 15:29 | NUR ---
UNABLE TO GET AHOLD OF DPOA AT THIS TIME. VOICE MESSAGE LEFT.
[2021-12-07 15:34] LABS: ABSOLUTE NEUTROPHILS 7.5 thou/uL (1.4-8.2); PLATELET COUNT 197 thou/uL (150-400); PLATELET ESTIMATE NORMAL
--- NOTE | 2021-12-07 15:42 | NUR ---
Rosemary Bateman, daughter and DPOA: [phone]
--- NOTE | 2021-12-07 15:47 | NUR ---
DOV DICK, CAREGIVER: [phone]
[2021-12-07 16:33] VITALS: BP 128/62
--- NOTE | 2021-12-07 18:06 | NUR ---
[age] OLD MALE ADMITTED TO WEST ROOM 362. PT WAS BROUGHT INTO THE ER PER CAREGIVER DUE TO INCREASE WEAKNESS. PT ALERT AND ORIENTED TIMES FOUR. VSS, 2L PER NC. PT DENIES ANY PAIN/SOA AT THIS TIME. PT RESTING WILL CONTINUE TO MONITOR.
[2021-12-07] MEDS ORDERED: AMARYL2 M1 PO (18:17)
[2021-12-07 19:45] VITALS: BP 127/66
[2021-12-08 03:09] LABS: HEMATOCRIT 30.3 % (42.0-52.0); HEMOGLOBIN 10.6 gm/dL (14.0-18.0); MCH 31.8 pg (26.0-34.0); MCHC 34.9 g/dL (28.0-37.0); RBC 3.33 mil/uL (4.50-6.00); RDW 14.2 % (10.5-14.5); WBC 4.6 thou/uL (4.0-11.0)
[2021-12-08 03:51] LABS: CALCIUM 8.2 mg/dL (8.5-10.1); CREATININE 1.5 mg/dL (0.7-1.3); POTASSIUM 4.4 mmol/L (3.5-5.1)
--- NOTE | 2021-12-08 05:04 | NUR ---
ASSUMED PT CARE AT 1900. PT ALERT & ORIENTED X 3-4, AND IS CALM & COOPERATIVE. PT IS RESTING COMFORTABLY IN BED AND HAS NO C/O OF PAIN, NAUSEA/VOMITTING. CURRENTLY ON 2L O2 NC AND O2 SATS > 95%. VSS AFEBRILE. PT IS ABLE TO MAKE NEEDS KNOWN. WILL CONTINUE TO OBSERVE FOR ANY CHANGES.
[2021-12-08 05:54] VITALS: BP 120/62
--- NOTE | 2021-12-08 08:05 | EKG ---
[place] [address] [place] [address] ELECTROCARDIOGRAM REPORT Name: PIPERMARTIN Room #: 362-P ADM IN M.R.#: [id number] Admission: 12/07/21 Attend Phys: Reginald Llamas MD Discharge: Date of : 34 Report #: [id number] [facility] ED Test Date: 2021-12-07 Test Time: 14:28:07 Pat Name: MARTIN PIPER Department: Room: 362 Gender: M Medical Transcription Radiology: RIMMA : 1935 Requested By: Keith Rm Order Number: [id number] MD: Art Almaguer Measurements Intervals [place] Rate: 98 P: AK: QRS: 71 QRSD: 99 T: -89 QT: 351 QTc: 449 Interpretive Statements Suspect Atrial fibrillation Repol abnrm, severe global ischemia (LM/MVD) Artifact in lead(s) I,II,III,aVR,aVL,aVF,V1,V2,V3,V4,V5 Compared to ECG 12/22/2020 07:37:43 Early repolarization now present Possible ischemia now present Sinus rhythm no longer present Atrial premature complex(es) no longer present ST (T wave) deviation no longer present Electronically Signed On 12-08-2021 8:05:26 DIRECTOR OF ENROLLMENT by Art Almaguer [email or web address] <ELECTRONICALLY SIGNED> By: Art Almaguer MD, [facility] 12/08/2105 142 1428 Art Almaguer MD, [facility] /EPI
[2021-12-08 08:09] VITALS: BP 103/55
[2021-12-08 11:47] VITALS: BP 103/49
--- NOTE | 2021-12-08 13:12 | HC ---
[facility] [place] [address] CONSULTATION Name: MARTIN PIPER Room #: 362-P [facility] IN M.R.#: [id number] Admission: 12/07/21 Attend Phys: Reginald Llamas MD Discharge: Date of : 34 Report #: [id number] THIS REPORT FOR: cc: Jacques Martinez MD, Christopher B. MD Barry, Joseph W. MD ~ DATE OF SERVICE: 12/08/2021 INFECTIOUS DISEASE CONSULTATION ATTENDING PHYSICIAN: Dr. Llamas. REASON FOR EVALUATION: COVID-19 infection, complicated by pneumonitis and respiratory failure. HISTORY OF PRESENT ILLNESS: Chart reviewed. The patient examined. This is a 69-year-old gentleman with history of diabetes mellitus, complicated by vasculopathy, has known coronary artery disease, also, has hypothyroidism, who apparently lives at home, presented to the Emergency Room with complaints of weakness, did have some progressive difficulty breathing, mild cough, although mostly nonproductive, has not clearly had any significant fevers or chills. Appetite was satisfactory. He was evaluated and found to have a positive coronavirus test. Chest x-ray did show evidence of interstitial opacities throughout all segments of both lungs. Urinalysis was otherwise unremarkable. Electrolytes: Sodium 140, creatinine 1.6. ProBNP elevated at 8361. He was initiated on therapy with supplemental oxygen 2 L per nasal cannula with adequate saturations. He was empirically started on vitamins and corticosteroids. He is generally lucid. ALLERGIES: None known. CURRENT MEDICATIONS: Include sliding scale insulin, zinc, cholecalciferol, ascorbic acid, dexamethasone, levothyroxine, isosorbide mononitrate, enoxaparin, ranolazine, p.r.n. analgesics, antiemetics. PAST MEDICAL HISTORY: As noted above, diabetes mellitus, has been complicated by vasculopathy, has known coronary artery disease with cardiomyopathy, high cholesterol. SOCIAL HISTORY: Former smoker. No ethanol, no illicit drug use. FAMILY HISTORY: Noncontributory. REVIEW OF SYSTEMS: As above. PHYSICAL EXAMINATION: [facility] [address] [place] [address] CONSULTATION Name: MARTIN PIPER Room #: 362-P [facility] IN M.R.#: [id number] Admission: 12/07/21 Attend Phys: Reginald Llamas MD Discharge: Date of : 34 Report #: [id number] GENERAL: He is a pleasant, alert, cooperative, in ssbv-tl-pvxxxdno distress, generally lucid, reasonably well nourished. VITAL SIGNS: Temperature 97.5, pulse 75, respirations 19, blood pressure 103/49, saturation 92%. SKIN: Warm, dry, no rashes. HEENT: Normocephalic. Extraocular muscles intact. Nasal cannula in place. NECK: Supple. LUNGS: Few bilateral scattered coarse breath sounds. HEART: Regular. Soft systolic murmur. ABDOMEN: Slightly distended, somewhat firm, nontender. EXTREMITIES: No cyanosis. GENITOURINARY AND RECTAL: Deferred. LABORATORY DATA: As described above. Most recent electrolytes, sodium 133, potassium 4.4, chloride 100, bicarbonate is 21, anion gap of 12, BUN and creatinine 28 and 1.5, glucose of 341. CBC: White count 4.6, H and H 10.6 and 30.3, platelets of 140. ASSESSMENT AND PLAN: COVID-19 infection, complicated by pneumonitis and respiratory failure in setting of diabetes mellitus with hyperglycemia, also appears to be anemic as well. We will continue current approach with additions including remdesivir, start ceftriaxone as well. Remains quite tenuous at this point given his age and his underlying medical conditions. He is certainly at risk for clinical deterioration. We will monitor expectantly. Continue supportive care. <ELECTRONICALLY SIGNED> By: Rene King MD 12/08/21 1312 1106 1209 Rene King MD /nt
--- NOTE | 2021-12-08 15:00 | NUR ---
INITIAL ASSESSMENT: ENMANUEL spoke with nursing and attending physician. Pt was admitted from home due to weakness/COVID pneumonia. Pt placed in Enhanced Isolation. Therapy ordered to assess pt for discharge needs. SW left voice message for pt's dtrTati ([phone]) to obtain info and discuss discharge plan. ENMANUEL is following to assist as needed with discharge planning.
[2021-12-08 15:21] LABS: URINE BILIRUBIN NEGATIVE (Negative); URINE BLOOD NEGATIVE (Negative); URINE CLARITY CLOUDY; URINE COLOR YELLOW; URINE GLUCOSE-RANDOM* 3+ (Negative); URINE KETONES NEGATIVE (Negative); URINE LEUKOCYTES-REFLEX TRACE (Negative); URINE NITRITE-REFLEX NEGATIVE (Negative); URINE PROTEIN (DIPSTICK) 2+ (Negative); URINE SPECIFIC GRAVITY <= 1.005 (1.005-1.035); URINE UROBILINOGEN 0.2 E.U./dl (0.2-1.0)
[2021-12-08 15:35] VITALS: BP 105/58
[2021-12-08 16:54] LABS: BACTERIA-REFLEX >30 Many /HPF (None Seen); CASTS None Seen /LPF (None Seen); SQUAMOUS 0-3 Few /LPF (0-3); URINE RBC 3-10 Few /HPF (NONE SEEN); URINE WBC-REFLEX 0-5 Rare /HPF (0-5)
[2021-12-08 16:55] LABS: TRIPLE PHOSPHATE CRYSTALS >10 Many /LPF (None Seen)
--- NOTE | 2021-12-08 18:31 | NUR ---
ASSUMED PATIENT CARE AT 0700. A/0 X4. GENERLIZED WEAKNESS. ON 2L/NC. NO SOB NOTED. SLOWLY TOWARDS POC GOAls.
[2021-12-08 19:35] VITALS: BP 116/64
[2021-12-08 23:30] VITALS: BP 108/64
[2021-12-09 03:58] VITALS: BP 102/62
[2021-12-09 04:05] LABS: ALBUMIN 2.5 g/dL (3.4-5.0); CALCIUM 8.1 mg/dL (8.5-10.1); CREATININE 1.4 mg/dL (0.7-1.3); DIRECT BILIRUBIN 0.1 mg/dL (<0.1-0.2); POTASSIUM 4.1 mmol/L (3.5-5.1); TOTAL BILIRUBIN 0.3 mg/dL (0.2-1.0); TOTAL PROTEIN 5.8 g/dL (6.4-8.2)
--- NOTE | 2021-12-09 05:49 | NUR ---
Patient making slow progress towards outcome goals. Vital signs and rhythm stable, Low urine output, IVfluids infusing. No energy, feeling weak. Fall precautions in place.
[2021-12-09 08:49] VITALS: BP 117/78
--- NOTE | 2021-12-09 11:03 | NUR ---
ENMANUEL reviewed chart and spoke with nursing and attending physician. Pt remains in Enhanced Isolation due to COVID. Pt is afebrile and on 3L of O2. Pt is on IV abx and IV steroids. Pt has been started on course of Remdesivir. Per chart, pt has received a COVID vaccination. PT/OT ordered. ENMANUEL placed call to pt's room. No answer. ENMANUEL spoke with pt's dtr, Tati, via phone. Introduced role of ENMANUEL. Pt was living at [facility] until November, and the has moved into an apt with a family friend, who is able to provide care to pt. Pt is normally ambulatory with a rollator walker. Pt has used [facility] in the past when he as at [place]. Pt has been to [facility] in the past for rehab. Pt is . Pt's dtr lives out of state. Pt's PCP is Dr. Johann Martinez. ENMANUEL discussed discharge needs: post-acute placement v. Home with HH. Pt's dtr is agreeable with either option. ENMANUEL discussed barrier to finding post-acute placement in a SNF being COVID positive. Pt's dtr verbalized understanding. Pt's dtr is agreeable with [facility] consult. ENMANUEL discussed with attending physician and [facility] rehabilitation psychologist. Consult to be placed today. ENMANUEL is following to assist as needed with discharge planning.
[2021-12-09 14:00] VITALS: BP 117/78
[2021-12-09 14:45] VITALS: BP 111/60
--- NOTE | 2021-12-09 19:18 | NUR ---
ASSUMED PATIENT CARE AT 0700. A/O X3. ON 3L/NC. WALK WITH PT IN ROOM. GENERLIZED WEAKNESS. POOR APPTITE. NOT TOWARDS POC GOALS.
[2021-12-09 20:10] VITALS: BP 110/62
[2021-12-10 04:18] VITALS: BP 127/73
--- NOTE | 2021-12-10 04:26 | NUR ---
CARE ASSUMED AT 1900. PT IS ALERT & ORIENTED X 4, AND IS CALM & COOPERATIVE. CURRENTLY ON 2L O2 VIA NC AND O2 SATS > 95%. PT STATED THAT HE IS STILL FEELING WEAK BUT FEELS BETTER TODAY THAN HE DID PREVIOUSLY. PT'S BLOOD SUGAR WAS ELEVATED AT BEDTIME AT 419. ADMINISTERED INSULIN PER ORDERS AND NOTIFIED AUDITING CLERK. BLOOD SUGAR RECHECK AT MIDNIGHT WAS 343, NOTIFIED AUDITING CLERK. NO NEW ORDERS RECEIVED. PT USES URINAL AT BEDSIDE BUT HAS SOME PERIODS OF INCONTINENCE. PT PROGRESSING SLOWLY TOWARDS POC GOALS. ALL NEEDS ARE MET AT THIS TIME. WILL CONTINUE TO MONITOR.
[2021-12-10 05:44] LABS: ALBUMIN 2.2 g/dL (3.4-5.0); CALCIUM 7.8 mg/dL (8.5-10.1); CREATININE 1.4 mg/dL (0.7-1.3); DIRECT BILIRUBIN 0.1 mg/dL (<0.1-0.2); PHOSPHORUS 3.6 mg/dL (2.5-4.9); TOTAL BILIRUBIN 0.7 mg/dL (0.2-1.0); TOTAL PROTEIN 5.7 g/dL (6.4-8.2)
[2021-12-10 07:46] VITALS: BP 116/75
[2021-12-10 11:43] VITALS: BP 124/61
--- NOTE | 2021-12-10 13:57 | NUR ---
SW reviewed chart and spoke with nursing and attending physician. Pt remains in Enhanced Isolation due to COVID. Pt is afebrile and on 2L of O2. Pt is on IV abx and IV steroids. SW discussed case with [facility] manager rehab. Pt will be able to admit to rehab status when course of Remdesivir has been completed. Per chart, pt to have last dose on Monday, 12/12. ENMANUEL placed call to pt's room. No answer. ENMANUEL left voice message for pt's dtr, Tati, to provide update. SW updated attending physician. SW is following to assist as needed with discharge planning.
[2021-12-10 15:27] VITALS: BP 119/76
--- NOTE | 2021-12-10 18:31 | NUR ---
RN ASSUMED PT'S CARE AT 0700AM, PT IS A&OX4 , PT IS ON O2 2-3L/MIN/NC, PT'S O2SAT AND VS ARE STABLE AT DAY SHIFT, PT IS CONTINUING IV ABX AND TREAT COVID MEDICATIONS , PT GETS UP TO CHAIR WITH ASSIST, PT DENIES PAIN AND SOB BY THIS TIME.
[2021-12-10 19:44] VITALS: BP 114/71
[2021-12-11 04:48] VITALS: BP 126/77
--- NOTE | 2021-12-11 04:57 | NUR ---
ASSUMED PT CARE AT 1900. PT IS RESTING COMFORTABLY IN BED AND HAS NO C/O OF PAIN, NAUSEA/VOMITTING. PT HAS A FLAT AFFECT AND IS SLOW TO ANSWER QUESTIONS. CURRENTLY ON 3L O2 VIA NC. VSS AFERBILE. ALL NEEDS ARE MET AT THIS TIME. WILL CONTINUE TO MONITOR FOR ANY CHANGES.
[2021-12-11 06:19] LABS: ALBUMIN 2.3 g/dL (3.4-5.0); ANION GAP 14 mmol/L (7-16); BUN 28 mg/dL (7-18); CALCIUM 8.3 mg/dL (8.5-10.1); CHLORIDE 107 mmol/L (98-107); CO2 19 mmol/L (21-32); CREATININE 1.1 mg/dL (0.7-1.3); DIRECT BILIRUBIN < 0.1 mg/dL (<0.1-0.2); GLUCOSE 77 mg/dL (74-106); PHOSPHORUS 3.4 mg/dL (2.5-4.9); POTASSIUM 3.9 mmol/L (3.5-5.1); SGOT 20 U/L (15-37); SGPT 14 U/L (30-65); SODIUM 140 mmol/L (136-145); TOTAL BILIRUBIN 0.2 mg/dL (0.2-1.0)
[2021-12-11 07:48] VITALS: BP 127/81
[2021-12-11 11:34] VITALS: BP 137/77
--- NOTE | 2021-12-11 14:06 | EKG ---
[place] [address] [address] [facility] [place] [address] ELECTROCARDIOGRAM REPORT Name: MARTIN PIPER Room #: 362-P ADM IN M.R.#: [id number] Admission: 12/07/21 Attend Phys: Reginald Llamas MD Discharge: Date of : 34 Report #: [id number] [facility] Test Date: 2021-12-11 Test Time: 10:14:39 Pat Name: MARTIN PIPER Department: Room: 362 P Gender: M Able Seaman: RIMMA : 1935 Requested By: Rubina Quick Order Number: [id number] MD: Christopher Gallegos Measurements Intervals [place] Rate: 106 P: [place]: QRS: 44 QRSD: 98 T: 57 QT: 320 QTc: 425 Interpretive Statements Atrial fibrillation Ventricular premature complex vs Denise beats Nonspecific ST/T wave changes EARLY PRECORDIAL R/S TRANSITION Baseline wander Compared to ECG 12/07/2021 14:28:07 no significant changes Electronically Signed On 12-11-2021 14:06:41 LIME BOILER by Christopher Gallegos [email or web address] <ELECTRONICALLY SIGNED> By: Christopher Gallegos MD 12/11/21 1406 1014 1014 Christopher Gallegos MD /EPI
[2021-12-11 15:26] VITALS: BP 125/87
--- NOTE | 2021-12-11 18:31 | NUR ---
ASSUMED PATIENT CARE AT 0700. A/O X3. FLAT. REFUSED TWO MEALS. VSS. NOT TOWARDS POC GOALS.
[2021-12-11 19:54] VITALS: BP 109/57
--- NOTE | 2021-12-12 01:53 | NUR ---
PT ALERT AND ORIENTED X4. VSS AFEBRILE. HE IS SLEEPING QUIETLY PRESENTLY. NO C/O PAIN. DENIED SOA. HERNANDEZ HAS LG AMTS CLEAR YELLOW URINE. AFIB 70-90 ON THE MONITOR. WILL CONTINUE TO MONITOR PT FOR CHANGES.
[2021-12-12 04:08] VITALS: BP 126/72
[2021-12-12 05:37] LABS: ALBUMIN 2.4 g/dL (3.4-5.0); CALCIUM 8.2 mg/dL (8.5-10.1); CREATININE 1.2 mg/dL (0.7-1.3); DIRECT BILIRUBIN 0.1 mg/dL (<0.1-0.2); PHOSPHORUS 3.7 mg/dL (2.5-4.9); POTASSIUM 3.6 mmol/L (3.5-5.1); TOTAL BILIRUBIN 0.3 mg/dL (0.2-1.0); TOTAL PROTEIN 5.9 g/dL (6.4-8.2)
[2021-12-12 07:03] VITALS: BP 116/63
[2021-12-12 07:50] VITALS: BP 122/72
--- NOTE | 2021-12-12 07:55 | NUR ---
PT ALERT X4 BUT SEEMS DEPRESSED VSS. AFEBRILE. SATS 94% PRESENTLY ON 3LNC. GAVE LASIX THIS AM ORDERED. PT HAD GOOD UO 1650 LAST NIGHT FROM [employer]. INC OF STOOL X2. ZGARD APPLIED. PT ENCOUIRAGED TO REPOSITION.
[2021-12-12] MEDS ORDERED: HUMALOG100 UNIT/1 SUBQ (10:42)
[2021-12-12] MEDS ORDERED: DEXAMETHASONE 44 M1 PO (10:42)
[2021-12-12] MEDS ORDERED: ASPIRIN EC325 M1 PO (10:43)
[2021-12-12] MEDS ORDERED: CEFUROXIME500 MG PO (10:47)
[2021-12-12 11:54] VITALS: BP 138/72
[2021-12-13] MEDS ORDERED: ROSUVASTATIN CA20 MG PO (14:27)
[2021-12-13] MEDS ORDERED: METOPROLOL SUCC25 M1 PO (14:27)
== END 2021-12-12 14:52 | DRG 177 ==
LOC: ER 14:20 → EROBS 16:46 → 3W 16:46
PROVIDERS: Emergency Medicine; Specialist; ADMIT Hospitalist; ATTEND Hospitalist
PROC: XW033E5 Introduction of Remdesivir Anti-infective into Peripheral Vein, Percutaneous Approach, New Technology Group 5 (ICD-10-PCS; principal; 2021-12-09)
DX: U07.1 COVID-19 (principal); J12.82 Pneumonia due to coronavirus disease 2019; N17.0 Acute kidney failure with tubular necrosis; J96.00 Acute respiratory failure, unspecified whether with hypoxia or hypercapnia; I42.9 Cardiomyopathy, unspecified; I50.9 Heart failure, unspecified; I25.10 Atherosclerotic heart disease of native coronary artery without angina pectoris; E11.51 Type 2 diabetes mellitus with diabetic peripheral angiopathy without gangrene; Z79.4 Long term (current) use of insulin; I48.91 Unspecified atrial fibrillation; Z79.01 Long term (current) use of anticoagulants; E03.9 Hypothyroidism, unspecified; D64.9 Anemia, unspecified; M19.90 Unspecified osteoarthritis, unspecified site; E11.40 Type 2 diabetes mellitus with diabetic neuropathy, unspecified; Z87.440 Personal history of urinary (tract) infections; I25.2 Old myocardial infarction; Z87.891 Personal history of nicotine dependence
CPT/HCPCS: 10879

== ENCOUNTER 2021-12-12 13:11 | Inpatient (IN) | payer OTHER ==
[~2021-12-12] VITALS: Ht 180.3 cm; Wt 79.8 kg
[~2021-12-12 13:11] MED LIST changes: +AMARYL2 M1 PO; +CEFUROXIME500 MG PO; +DEXAMETHASONE 44 M1 PO; +METFORMIN HCL1000 MG PO
--- NOTE | 2021-12-12 18:21 | NUR ---
ADMIT TO REHAB. A/O X3. DEPRESSED. TITRATED 02 TO 3L/NC. SLOWLY TOWARDS POC GOALS
[2021-12-12 21:18] VITALS: BP 118/52
[2021-12-13 08:08] VITALS: BP 146/86
--- NOTE | 2021-12-13 13:29 | NUR ---
INITIAL REHAB ASSESSMENT: SW reviewed chart and spoke with nursing. Pt was admitted to rehab status yesterday. Pt will remain on 3W until Enhanced Isolation precautions have been discontinued. Pt was admitted to [facility] on 12/07 with COVID pneumonia. Pt has been vaccinated. Pt with hs CHF and DM. SW spoke with pt via phone. Introduced role of SW. Pt is alert/orientated. Spoke briefly with pt as therapy was in the room. Pt confirms he lives at home with a family friend, who assists pt as needed. Pt has a walker. 2 steps to enter the home. No steps inside. Plan is for pt to discharge home when medically stable. SW spoke with pt's dtr, Tati ([phone]) via phone to provide update. Pt was living at [facility] until November of this year. Pt's PCP is Dr. Johann Martinez. Pt's dtr notified that rehab team conferences are held on afternoons. SW discussed need for HH and possible home O2 at time of discharge. Pt's dtr verbalized understanding. Options for HH providers discussed. No preference voiced. SW faxed HH referral to [facility]. Notified HH liaison of new referral. SW is following to assist as needed with discharge planning.
[2021-12-13] MEDS ORDERED: ROSUVASTATIN CA20 MG PO ×2 (14:27)
[2021-12-13] MEDS ORDERED: METOPROLOL SUCC25 M1 PO ×2 (14:27)
--- NOTE | 2021-12-13 18:29 | NUR ---
PT IS PROGREESSING TOWARDS CARE. ALERT AND ORIENTED X4, WITHDRAWN. WAS UP IN THE CHAIR MOST OF THE DAY. WORKED WITH PT/OT. CONTINUE TO BE IN ENHANCED ISOLATION. FALL PRECAUTIONS IN PLACE. WILL CONTINUE TO MONITOR.
[2021-12-13 20:05] VITALS: BP 135/75
[2021-12-14 03:23] VITALS: BP 113/72
[2021-12-14 05:27] LABS: HEMATOCRIT 29.5 % (42.0-52.0); HEMOGLOBIN 10.2 gm/dL (14.0-18.0); MCH 31.4 pg (26.0-34.0); MCHC 34.6 g/dL (28.0-37.0); MCV 90.6 fL (80.0-100.0); PLATELET COUNT 244 thou/uL (150-400); RBC 3.26 mil/uL (4.50-6.00); RDW 14.3 % (10.5-14.5); WBC 7.6 thou/uL (4.0-11.0)
[2021-12-14 05:57] LABS: CALCIUM 8.4 mg/dL (8.5-10.1); CREATININE 1.1 mg/dL (0.7-1.3); MAGNESIUM 1.9 mg/dL (1.8-2.4); POTASSIUM 3.8 mmol/L (3.5-5.1)
--- NOTE | 2021-12-14 06:19 | NUR ---
Pt. stated he didn't sleep much last night. Denies any pain or discomfort. Cont. on enhanced precaution , afebrile. Maintaining O2 sat in the upper 90's on 3L/NC. External cath in place. Bed alarm for safety.
[2021-12-14 07:20] VITALS: BP 129/74
[2021-12-14 09:33] LABS: ABSOLUTE NEUTROPHILS 6.8 thou/uL (1.4-8.2); PLATELET ESTIMATE NORMAL
--- NOTE | 2021-12-14 11:27 | NUR ---
SW reviewed chart and spoke with nursing and attending physician. Pt remains in Enhanced Isolation due to COVID. Pt is afebrile and on 3L of O2. SW was notified by [facility] liaison, that they are able to accept pt on service when discharged home. Pt to remain on 3W until out of isolation. Rehab team conference to be held on afternoon. ENMANUEL is following to assist as needed with discharge planning.
--- NOTE | 2021-12-14 17:24 | NUR ---
PT IS PROGRESSING TOWARDS CARE, OXYGEN DECREASED TO 2L, NO SIGNS OF DISTRESS NOTE. WORKED WITH REHAB. UP IN THE CHAIR MOST OF THE DAY. BLOOD SUGAR CONTINUE TO BE HIGH. INSULIN SLIDING GIVEN PER ORDER. FALL PRECAUTIONS IN PLACE. DENIES ANY NEEDS AT MOMENT, WILL CONTINUE TO MONITOR.
[2021-12-14 19:14] VITALS: BP 119/77
--- NOTE | 2021-12-15 05:09 | NUR ---
Pt. stated he slept well during the night.Cont. on enhanced precaution, afebrile. Maintaining O2 sat in the mid 90's on 2L/NC. Voiding per urinal. Bed alarm on for safety.
[2021-12-15 07:27] VITALS: BP 110/64
--- NOTE | 2021-12-15 14:39 | NUR ---
PT IS PROGRESSING TOWARDS, CONTINUE TO BE ON 2L OXYGEN, NO SIGNS OF DISTRESS. CONTONUE TO WORK WITH PT/OT. USES URINAL AND CAN BE INCONTINET SOMETIMES. UP WITH A WALKER. FALL AND ENHANCED PRECUATIONS IN PLACE. WILL CONTINUE TO MONITOR.
[2021-12-15 19:54] VITALS: BP 119/72
[2021-12-16 07:00] VITALS: BP 98/63
--- NOTE | 2021-12-16 14:25 | NUR ---
Team meeting, recommendation: assist with medication and finances, related to mod to severe cognition and memory. He needs someone who can hand the medication to him. possible will need home oxygen. Dc 12/21 with hh ( pt, ot, st, and nursing).
--- NOTE | 2021-12-16 17:45 | NUR ---
PT CONTINUE TO PROGRESS TOWARDS PLAN OF CARE, WORKED WITH REHAB. UP INT HE CHAIR. USES URINAL, INCONTINENT AT TIMES. STOOL SOFTNER GIVEN FOR CONTIPATION. FALL PRECAUTIONS IN PLACE. CONTINUE TO BE IN ISOLATION FOR COVID. ANTICIPATING FOR DICHAGE 12/21
[2021-12-16 19:14] VITALS: BP 106/58
[2021-12-17 07:25] VITALS: BP 127/66
--- NOTE | 2021-12-17 09:00 | NUR ---
PT MAKING SLOW PROGRESS TOWARDS GOALS. ON O2 AT 2L PER NC OVERNIGHT. DENIED ANY SOA WHILE AT REST. NO REPORTED SOA PT MOVED FROM CHAIR TO BED WITH STANDBY ASSIST. DID NEED SOME HELP RISING FROM SITTING IN THE RECLINER TO STANDING.
--- NOTE | 2021-12-17 14:00 | NUR ---
Enhanced isolation for covid. Cm left message with his daughter loree, requesting a call back. [facility] is able [facility] accept for home health needs at discharge.
[2021-12-17 15:28] VITALS: BP 110/65
[2021-12-17 19:13] VITALS: BP 108/67
--- NOTE | 2021-12-18 07:28 | NUR ---
PROGRESS PT A/O X4 UP WITH GB WALKER AND SBA. ON 3 LITERS O2 VSS. SLEEP MOST OF NOC DENIES PAIN CONTINUE POC.
[2021-12-18 07:29] VITALS: BP 107/53
[2021-12-18 15:06] VITALS: BP 116/70
--- NOTE | 2021-12-18 17:55 | NUR ---
assumed care of pt at 0700. remains on 3L NC. labile blood sugars. vitals stable. up w/ assist. flat affect. no other changes to report.
[2021-12-18 19:02] VITALS: BP 107/74
[2021-12-18 19:02] LABS: HEMATOCRIT 30.9 % (42.0-52.0); HEMOGLOBIN 10.4 gm/dL (14.0-18.0); MCH 31.2 pg (26.0-34.0); MCHC 33.5 g/dL (28.0-37.0); RBC 3.32 mil/uL (4.50-6.00); RDW 14.3 % (10.5-14.5); WBC 13.7 thou/uL (4.0-11.0)
[2021-12-18 19:18] LABS: ALBUMIN 2.2 g/dL (3.4-5.0); CREATININE 1.3 mg/dL (0.7-1.3); MAGNESIUM 2.1 mg/dL (1.8-2.4); POTASSIUM 5.5 mmol/L (3.5-5.1); TOTAL BILIRUBIN 0.4 mg/dL (0.2-1.0); TOTAL PROTEIN 5.9 g/dL (6.4-8.2)
[2021-12-19 06:09] LABS: HEMATOCRIT 31.4 % (42.0-52.0); HEMOGLOBIN 10.4 gm/dL (14.0-18.0); MCH 30.6 pg (26.0-34.0); MCHC 33.1 g/dL (28.0-37.0); MCV 92.5 fL (80.0-100.0); RBC 3.4 mil/uL (4.50-6.00); RDW 14.6 % (10.5-14.5); WBC 15.1 thou/uL (4.0-11.0)
[2021-12-19 06:29] LABS: CREATININE 1.3 mg/dL (0.7-1.3); MAGNESIUM 2.2 mg/dL (1.8-2.4); POTASSIUM 5.2 mmol/L (3.5-5.1)
--- NOTE | 2021-12-19 07:11 | NUR ---
PROGRESS PT A/O X4' LUNGS CLEAR BUT DIMINISHED. OCCASIONAL DRY COUGH NOTED. ON 3 LITERS O2 SATS IN MID 90'S. HAD A VERY LARGE BROWN BM STATED HE WAS SO FULL IT WAS HURTING BUT FELT RELIEF AFTER. TOLERATING DIET SNACKING ON NUTS AND THINGS FROM HOME. UP WITH SBA GB AND WALKER AMBULATES WITHOUT DIFFICULTY. CONTINUE POC.
[2021-12-19 07:21] VITALS: BP 125/69
--- NOTE | 2021-12-19 14:55 | NUR ---
THIS AM, PT O2 SAT WAS IN THE 80'S. OXYGEN INCREASED TO 4L, O2 SAT UP IN THE 90'S NOW. PT SEEMED SOB, DR. TEIXEIRA MADE AWARE. ORDER FOR XRAY AND LABS IN. CONSULT TO ID MADE PER MD ORDERS. UP IN THE CHAIR, WORKED WITH PT/OT. FALL PRECAUTIONS IN PLACE. WILL CONTINUE TO MONITOR.
[2021-12-19 20:26] VITALS: BP 103/63
[2021-12-20 05:52] LABS: HEMATOCRIT 27.9 % (42.0-52.0); HEMOGLOBIN 9.5 gm/dL (14.0-18.0); MCH 31.4 pg (26.0-34.0); MCV 92.4 fL (80.0-100.0); RBC 3.02 mil/uL (4.50-6.00); RDW 14.4 % (10.5-14.5); WBC 13.3 thou/uL (4.0-11.0)
[2021-12-20 06:09] LABS: ALBUMIN 2.1 g/dL (3.4-5.0); CALCIUM 9.2 mg/dL (8.5-10.1); CREATININE 1.3 mg/dL (0.7-1.3); POTASSIUM 5.2 mmol/L (3.5-5.1); TOTAL BILIRUBIN 0.3 mg/dL (0.2-1.0); TOTAL PROTEIN 5.7 g/dL (6.4-8.2)
[2021-12-20 07:38] VITALS: BP 100/59
--- NOTE | 2021-12-20 13:12 | NUR ---
Cm returned voice message from daughter Tati # [phone], Cm provided education on dc plan for 12/21 with [facility] ( pt, ot, st, and nursing). Patient going to cont. to have assistance from friend Ki Lawrence # [phone], address [address], ([facility]) [facility] [address]. Ki will pepper picker patient up at 1300, front door, [address] here at [facility].
[2021-12-20 14:30] VITALS: BP 100/59
[2021-12-20 19:11] VITALS: BP 154/71
[2021-12-21 05:35] LABS: HEMOGLOBIN 10.5 gm/dL (14.0-18.0); MCH 30.8 pg (26.0-34.0); MCHC 33.7 g/dL (28.0-37.0); MCV 91.3 fL (80.0-100.0); RBC 3.39 mil/uL (4.50-6.00); RDW 14.3 % (10.5-14.5); WBC 12.9 thou/uL (4.0-11.0)
[2021-12-21 05:51] LABS: ALBUMIN 2.2 g/dL (3.4-5.0); CALCIUM 8.6 mg/dL (8.5-10.1); CREATININE 1.1 mg/dL (0.7-1.3); MAGNESIUM 1.9 mg/dL (1.8-2.4); POTASSIUM 4.8 mmol/L (3.5-5.1); TOTAL BILIRUBIN 0.7 mg/dL (0.2-1.0)
[2021-12-21 07:38] VITALS: BP 120/65
--- NOTE | 2021-12-21 08:23 | NUR ---
Pt. stated he slept fair during the night. Nocturnal desat study done in RA initially then pt. desat and O2 at 2L/NC applied. RT notified. Off enhanced precaution , afebrile. Bed alarm on for safety. Voiding per urinal and has periods of occasional incontinence. Making some progress towards care plan goals.
--- NOTE | 2021-12-21 08:42 | NUR ---
07, cm checked with [employer]EC[employer] DIRECT[employer] to see if he was medically stable for dc home today, patient had a ct of chest yesterday afternoon, showing PE. Patient will need to remain here for few days to monitor hgb and kidney function, he will be starting Eliquis. Cm notified [facility] so o2 can be delivered for dc. Bogdan will still need rest and exercise prior to dc home. 08, cm left message for his daughter Tati and spoke with his friend Ki to notified Ki that bogdan dc is on hold for few days. Will cont following as needed. EXEC[employer]IVE DIRECT[employer] sent out message to the 5N team about the hold on discharge today.
[2021-12-21 16:01] VITALS: BP 106/57
[2021-12-21 19:13] VITALS: BP 177/84
[2021-12-21 20:56] VITALS: BP 119/65
--- NOTE | 2021-12-22 04:13 | NUR ---
Pt. slept fair during the night. O2 at 3L/NC and maintaining O2 sat in the mid 90's. He has been afebrile. Voided per urinal with occasional episode of incontinence. Bed alarm for safety.
[2021-12-22 05:21] LABS: HEMATOCRIT 29.1 % (42.0-52.0); MCH 31.7 pg (26.0-34.0); MCHC 34.4 g/dL (28.0-37.0); MCV 92.1 fL (80.0-100.0); RBC 3.16 mil/uL (4.50-6.00); RDW 14.7 % (10.5-14.5); WBC 10.2 thou/uL (4.0-11.0)
[2021-12-22 05:58] LABS: CALCIUM 8.4 mg/dL (8.5-10.1); CREATININE 1.4 mg/dL (0.7-1.3); MAGNESIUM 2.1 mg/dL (1.8-2.4); POTASSIUM 4.8 mmol/L (3.5-5.1); TOTAL BILIRUBIN 0.6 mg/dL (0.2-1.0); TOTAL PROTEIN 6.2 g/dL (6.4-8.2)
[2021-12-22 08:00] VITALS: BP 116/65
[2021-12-22] MEDS ORDERED: NEBULIZER MISCELL ×2 (08:43)
[2021-12-22 10:07] VITALS: BP 100/59
[2021-12-22] MEDS ORDERED: IPRAT-ALBUT 0.5-3 ML INH ×2 (11:01)
[2021-12-22] MEDS ORDERED: VITAMINC500 PO ×2 (11:01)
[2021-12-22] MEDS ORDERED: TRADJENTA5 MG PO ×2 (11:01)
[2021-12-22] MEDS ORDERED: VITAMIN B-12500 MCG PO ×2 (11:01)
[2021-12-22] MEDS ORDERED: CEFDINIR300 MG PO ×2 (11:01)
[2021-12-22] MEDS ORDERED: ASPIRIN EC325 M1 PO ×2 (11:01)
[2021-12-22] MEDS ORDERED: ZINC SULFATE50 MG PO ×2 (11:01)
[2021-12-22] MEDS ORDERED: PROTONIX 20 MG20 MG PO ×2 (11:02)
--- NOTE | 2021-12-22 12:02 | NUR ---
Pt dcing home today. His caregiver Ki was here this am and will be back btwn 4-5pm to take him home. [facility] has script and qualifying clinical for home o2 setup and a nebulizer. Their liason is droping a portable tank in the room. Care team updated. DC Hh orders faxed and confirmed with [facility].
[2021-12-22 12:20] VITALS: BP 100/59
[2021-12-22 15:45] VITALS: BP 120/67
--- NOTE | 2021-12-22 18:32 | NUR ---
DISCHARGE NOTE: GIVEN PT DISCHARGE INFORMATION, NEW SCRIPTS, UPCOMING APPOINTMENTS. DC IV AND TELEMETRY. ALL BELONGINGS WITH PT. PT LEFT WITH CAREGIVER. LEFT WITH HH AND O2.
--- NOTE | 2021-12-24 11:31 | NUR ---
SW received call from pt's dtr, Tati ([phone]) requesting call back regarding pt's discharge. SW reviewed chart. Pt was discharged on 12/22/2021 from 5N rehab status. Pt was on 3W due to recent Enhanced Isolation precautions. SW returned call and spoke with Tati regarding discharge. Pt's dtr had questions regarding HH services and follow up care. SW reviewed HH orders and also recommendations for pt and follow up appt with PCP. Pt's dtr was appreciative of call back. SW is available to assist should additional needs arise.
== END 2021-12-22 18:36 | disposition home health service (06) | DRG 175 ==
LOC: 3W 15:00
PROVIDERS: Internal Medicine; Nurse Practitioner; ADMIT Physical Medicine & Rehabilitation; ATTEND Physical Medicine & Rehabilitation
DX: I26.99 Other pulmonary embolism without acute cor pulmonale (principal); J96.00 Acute respiratory failure, unspecified whether with hypoxia or hypercapnia; N17.0 Acute kidney failure with tubular necrosis; G72.81 Critical illness myopathy; I42.9 Cardiomyopathy, unspecified; I13.0 Hypertensive heart and chronic kidney disease with heart failure and stage 1 through stage 4 chronic kidney disease, or unspecified chronic kidney disease; M19.90 Unspecified osteoarthritis, unspecified site; E78.00 Pure hypercholesterolemia, unspecified; E11.40 Type 2 diabetes mellitus with diabetic neuropathy, unspecified; E03.9 Hypothyroidism, unspecified; G31.84 Mild cognitive impairment of uncertain or unknown etiology; E11.649 Type 2 diabetes mellitus with hypoglycemia without coma; E78.5 Hyperlipidemia, unspecified; R26.9 Unspecified abnormalities of gait and mobility; E11.22 Type 2 diabetes mellitus with diabetic chronic kidney disease; N18.9 Chronic kidney disease, unspecified; E53.8 Deficiency of other specified B group vitamins; E55.9 Vitamin D deficiency, unspecified; R82.71 Bacteriuria; R53.81 Other malaise; I25.10 Atherosclerotic heart disease of native coronary artery without angina pectoris; I48.91 Unspecified atrial fibrillation; I50.9 Heart failure, unspecified; Z28.21 Immunization not carried out because of patient refusal; Z87.891 Personal history of nicotine dependence; Z95.1 Presence of aortocoronary bypass graft; Z87.440 Personal history of urinary (tract) infections; I25.2 Old myocardial infarction; Z79.899 Other long term (current) drug therapy; Z79.84 Long term (current) use of oral hypoglycemic drugs; Z79.02 Long term (current) use of antithrombotics/antiplatelets; Z79.4 Long term (current) use of insulin; Z79.82 Long term (current) use of aspirin; Z95.5 Presence of coronary angioplasty implant and graft; Z20.822 Contact with and (suspected) exposure to COVID-19
CPT/HCPCS: 10112; 10779

== ENCOUNTER 2021-12-23 21:25 | Emergency (ER) | payer OTHER ==
[~2021-12-23] VITALS: Ht 180.3 cm; Wt 78.0 kg
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
[~2021-12-23 21:25] MED LIST changes: +CEFDINIR300 MG PO; +IPRAT-ALBUT 0.5-3 ML INH; +NEBULIZER MISCELL; +PROTONIX 20 MG20 MG PO; +ROSUVASTATIN CA20 MG PO; +TRADJENTA5 MG PO; +VITAMINC500 PO; +ZINC SULFATE50 MG PO
[2021-12-23 22:10] LABS: BE(vivo) -1.1 mmol/L (-2 to +3); HCO3 24.1 mmol/L (22.0-26.0); PCO2 VENOUS 42.5 mmHg (41.0-51.0); PO2 VENOUS 32.5 mmHg (35.0-45.0)
[2021-12-23 22:15] LABS: ABSOLUTE NEUTROPHILS 8.5 thou/uL (1.4-8.2); BASOPHILS 0.2 % (0.0-2.0); HEMATOCRIT 30.2 % (42.0-52.0); LYMPHOCYTES 4.7 % (24.0-44.0); MCH 30.7 pg (26.0-34.0); MCHC 33.1 g/dL (28.0-37.0); MCV 92.8 fL (80.0-100.0); MONOCYTES 4.4 % (1.0-8.0); PLATELET COUNT 218 thou/uL (150-400); POLYS 89.7 % (36.0-66.0); RBC 3.26 mil/uL (4.50-6.00); RDW 14.5 % (10.5-14.5); WBC 9.4 thou/uL (4.0-11.0)
[2021-12-23 22:17] LABS: URINE BILIRUBIN NEGATIVE (Negative); URINE BLOOD TRACE (Negative); URINE CLARITY CLEAR; URINE COLOR YELLOW; URINE GLUCOSE-RANDOM* 3+ (Negative); URINE KETONES NEGATIVE (Negative); URINE LEUKOCYTES-REFLEX NEGATIVE (Negative); URINE NITRITE-REFLEX NEGATIVE (Negative); URINE PROTEIN (DIPSTICK) 2+ (Negative); URINE SPECIFIC GRAVITY 1.025 (1.005-1.035); URINE UROBILINOGEN 0.2 E.U./dl (0.2-1.0)
[2021-12-23 22:20] LABS: CALCIUM 8.9 mg/dL (8.5-10.1); CREATININE 1.8 mg/dL (0.7-1.3); POTASSIUM 4.2 mmol/L (3.5-5.1)
[2021-12-23 22:27] LABS: TOTAL BILIRUBIN 0.4 mg/dL (0.2-1.0); TOTAL PROTEIN 6.6 g/dL (6.4-8.2)
[2021-12-23 22:50] LABS: BACTERIA-REFLEX 1-9 Few /HPF (None Seen); MUCUS 0-3 Light strn/LPF (None Seen); SQUAMOUS 0-3 Few /LPF (0-3); URINE RBC 1-2 Rare /HPF (NONE SEEN); URINE WBC-REFLEX 0-5 Rare /HPF (0-5)
[2021-12-23 22:51] LABS: COARSE GRANULAR CASTS 0-3 Few /LPF (None Seen); CRYSTALS None Seen /LPF (None Seen); FINE GRANULAR CASTS 0-3 Few /LPF (None Seen); HYALINE CASTS 0-3 Few /LPF (None Seen)
[2021-12-24 00:29] VITALS: BP 117/78
== END 2021-12-24 00:30 | disposition home or self-care (01) ==
LOC: ER 21:25
PROVIDERS: Physician Assistant
DX: E11.65 Type 2 diabetes mellitus with hyperglycemia (principal); E11.40 Type 2 diabetes mellitus with diabetic neuropathy, unspecified; I10 Essential (primary) hypertension; E03.9 Hypothyroidism, unspecified; Z95.5 Presence of coronary angioplasty implant and graft; Z79.899 Other long term (current) drug therapy; Z79.2 Long term (current) use of antibiotics

== ENCOUNTER 2021-12-25 14:54 | Inpatient (IN) | payer OTHER ==
[~2021-12-25] VITALS: Ht 180.3 cm; Wt 74.7 kg
--- NOTE | ~2021-12-25 | EMS ---
[place] [id number] EMS Patient Care Report Name: MARTIN PIPER Room #: 215-P [facility] IN [place].RAnna Marie#: [id number] Admission: 12/25/21 Attend Phys: Rod Alexander DO Discharge: 12/28/21 Date of : 34 Report #: [id number] THIS REPORT FOR: //name// Report Transmitted: 12/29/2021 16:24 EMS Care Summary [place], [place]/[facility] Incident [id number] @ 12/25/2021 14:02 Incident Location [address] [place] [address] Patient ALINA PIPER Male, 86 Years 1935 Patient Address [address] [place] [address] Patient History Congestive Heart Failure (CHF),Diabetes,Pneumonia,Colitis,Hypothyroidism,Novel Coronavirus (COVID-19),Pulmonary Embolism, Patient Allergies No known allergies, Patient Medications Isosorbide, Metformin, Levothyroxine, Aspirin, Pantoprazole, Zinc, Cyanocobalamin Co57, Ranolazine, Glimepiride, Clopidogrel, Plavix, Atrovent, Chief Complaint SOA UPON EXERTION Disposition Transported No Lights/[place] Dispatch Reason [place] [address] EMS Patient Care Report Name: MARTIN PIPER Room #: 215-P DIS IN .R.#: [id number] Admission: 12/25/21 Attend Phys: Rod Alexander DO Discharge: 12/28/21 Date of : 34 Report #: [id number] DISPATCHED EMERGENCY ON A BREATHING PROBLEM. DELAY DUE TO DISTANCE. PUMPER 43 ON SCENE UPON ARRIVAL 86 Y/O MALE SITTING IN RECLINER IN FRONT ROOM APPEARING IN NO IMMEDIATE DISTRESS. GCS 15 AND A/OX4. CONSENT OBTAINED. PT ON HOME OXYGEN AT 8LPM. PT'S CAREGIVER STATES THAT PT WAS SENT HOME YESTERDAY FROM THE HOSPITAL AFTER HAVING BLOOD CLOTS IN HIS LUNGS. PT WAS SENT HOME ON OXYGEN BUT HIS OXYGEN SATURATION LEVELS WERE IN THE 80'S EVEN AFTER THEY INCREASED IS OXYGEN. PT STATES THAT HE IS HAVING TROUBLE BREATHING WHENEVER HE TRIES TO TAKE A FEW STEPS BUT FEELS FINE WHEN HE IS SITTING DOWN. V/S'S OBTAINED BY FIRE PRIOR TO EMS ARRIVAL WITH LOW OXYGEN SATURATION READING. CONTINUED ON OXYGEN VIA N/C AT 8LPM. MOVED WITHOUT INCIDENT TO AMBULANCE VIA STRETCHER. PLACED ON MONITOR AND V/S'S OBTAINED. H/R IS INCREASED AND OXYGEN SATURATION IS DECREASED. IV ATTEMPTED WITHOUT ESTABLISHMENT. OXYGEN INCREASED VIA NRB. TRANSPORTED TO [facility]. REASSESSED ENROUTE. REMAINS GCS 15 AND ALERT. V/S'S OBTAINED. H/R AND OXYGEN SATURATION IMPROVED. REPORT CALLED TO HOSPITAL. MOVED WITHOUT INCIDENT TO ER HOSPITAL BED 6. PT CARE TRANSFERRED TO ED RN. Initial Vitals @14:25P: 28,CO: 4,SpO2: 82, @PTAGCS: 15,Glucose: 326,SpO2: 80, @14:42P: 115,R: 20,BP: 148/87,Pain: 0/10,GCS: 15,SpO2: 97,Revised Trauma: 12, @14:22P: 132,R: 22,BP: 152/94,GCS: 15,Revised Trauma: 12, Assessments @14:17MENTAL:Place Oriented,Event Oriented,Time Oriented,Person Oriented,SKIN:HEENT:Head/Face: No Abnormalities,Neck/Airway: No Abnormalities,LUNG SOUNDS:General: No Abnormalities,ABDOMEN:General: No Abnormalities,PELVIS//GI:EXTREMITIES:Capillary Refill: Right Upper: < 2 Sec,Capillary Refill: Left Upper: < 2 Sec,Left Arm: No Abnormalities,Right Arm: No Abnormalities,Left Leg: No Abnormalities,Right Leg: No Abnormalities,PULSE:Radial: 2+ Normal,NEURO:No Abnormalities,@14:38MENTAL:No Abnormalities,SKIN:HEENT:Head/Face: No Abnormalities,Neck/Airway: No Abnormalities,LUNG SOUNDS:ABDOMEN:PELVIS//GI:EXTREMITIES:Capillary Refill: Right Upper: < 2 Sec,Capillary Refill: Left Upper: < 2 Sec,Left Arm: No Abnormalities,Right Arm: No Abnormalities,PULSE:Radial: 2+ Normal,NEURO: Impression Shortness of breath Procedures @14:26 3-Lead ECG Response: Unchanged @14:28 IV Therapy - Saline Lock cc (20 ga) Site: Hand-Left Response: UnchangedFailed @14:30 Oxygen FlowRate: 10 Device: Non Re-breather Mask (NRB) Response: ImprovedSucceeded @PTAOxygen FlowRate: 8 Device: Nasal Cannula (NC) Response: UnchangedFailed [facility] [address] [place] [address] EMS Patient Care Report Name: MARTIN PIPER Room #: 215-P DIS IN M.R.#: [id number] Admission: 12/25/21 Attend Phys: Rod MAnna Marie AlexanderDO colt Discharge: 12/28/21 Date of : 33 Report #: [id number] @14:17 ALS Assessment Response: UnchangedSucceeded @14:20 Stretcher Response: Unchanged Timeline PRICE ACCURACY SUPERVISOR,Oxygen FlowRate: 8 Device: Nasal Cannula (NC) Response: UnchangedFailed, PRICE ACCURACY SUPERVISOR,BP: / M,PULSE: ,RR: R,SPO2: 80 Ox,ETCO2: ,B,PAIN: ,GCS: 15, 14:00,Call Received 14:00,Dispatch Notified 14:02,Dispatched 14:03,En Route 14:14,On Scene 14:16,At Patient 14:17,ALS Assessment,Response: UnchangedSucceeded, 14:20,Stretcher,Response: Unchanged 14:22,BP: 152/94 M,PULSE: 132,RR: 22 R,SPO2: Ox,ETCO2: ,BG: ,PAIN: ,GCS: 15, 14:25,BP: / M,PULSE: 28,RR: R,SPO2: 82 Ox,ETCO2: ,BG: ,PAIN: ,GCS: , 14:26,3-Lead ECG,Response: Unchanged 14:28,IV Therapy - Saline Lock cc 20 ga Site: Hand-Left,Response: UnchangedFailed, 14:30,Oxygen FlowRate: 10 Device: Non Re-breather Mask (NRB) Response: ImprovedSucceeded, 14:35,Depart Scene 14:42,BP: 148/87 M,PULSE: 115,RR: 20 R,SPO2: 97 Ox,ETCO2: ,BG: ,PAIN: 0,GCS: 15, 14:52,At Destination 15:09,Call Closed Disclaimer v1.1 Copyright 2021 [employer] This EMS Care Summary contains data elements from the applicable legal record (which may be displayed differently). It is designed to provide pertinent information for the following purposes: continuity of care, clinical quality, and state data reporting. The complete legal record is available to ED staff and administrators of the receiving hospital in [facility]'s Patient Tracker. All data is provided "as is."
--- NOTE | ~2021-12-25 | EMS ---
[place] [id number] [facility] Patient Care Report Name: MARTIN PIPER Room #: 215-P ADM IN M.R.#: [id number] Admission: 12/25/21 Attend Phys: Rod Alexander DO Discharge: Date of : 34 Report #: [id number] THIS REPORT FOR: //name// Report Transmitted: 12/27/2021 13:27 EMS Care Summary [place], [place]/[facility] Incident [phone] @ 12/25/2021 14:02 Incident Location [address] [place] [address] Patient ALINA PIPER Male, 86 Years 1935 Patient Address [address] [place] [address] Patient History Congestive Heart Failure (CHF),Diabetes,Pneumonia,Colitis,Hypothyroidism,Novel Coronavirus (COVID-19),Pulmonary Embolism, Patient Allergies No known allergies, Patient Medications Isosorbide, Metformin, Levothyroxine, Aspirin, Pantoprazole, Zinc, Cyanocobalamin Co57, Ranolazine, Glimepiride, Clopidogrel, Plavix, Atrovent, Chief Complaint SOA UPON EXERTION Disposition Transported No Lights/[place] Dispatch Reason Breathing [place] [address] EMS Patient Care Report Name: MARTIN PIPER Room #: 215-P ADM IN M.R.#: [id number] Admission: 12/25/21 Attend Phys: Rod Alexander DO Discharge: Date of : 34 Report #: [id number] DISPATCHED EMERGENCY ON A BREATHING PROBLEM. DELAY DUE TO DISTANCE. PUMPER 43 ON SCENE UPON ARRIVAL 86 Y/O MALE SITTING IN RECLINER IN FRONT ROOM APPEARING IN NO IMMEDIATE DISTRESS. GCS 15 AND A/OX4. CONSENT OBTAINED. PT ON HOME OXYGEN AT 8LPM. PT'S CAREGIVER STATES THAT PT WAS SENT HOME YESTERDAY FROM THE HOSPITAL AFTER HAVING BLOOD CLOTS IN HIS LUNGS. PT WAS SENT HOME ON OXYGEN BUT HIS OXYGEN SATURATION LEVELS WERE IN THE 80'S EVEN AFTER THEY INCREASED IS OXYGEN. PT STATES THAT HE IS HAVING TROUBLE BREATHING WHENEVER HE TRIES TO TAKE A FEW STEPS BUT FEELS FINE WHEN HE IS SITTING DOWN. V/S'S OBTAINED BY FIRE PRIOR TO EMS ARRIVAL WITH LOW OXYGEN SATURATION READING. CONTINUED ON OXYGEN VIA N/C AT 8LPM. MOVED WITHOUT INCIDENT TO AMBULANCE VIA STRETCHER. PLACED ON MONITOR AND V/S'S OBTAINED. H/R IS INCREASED AND OXYGEN SATURATION IS DECREASED. IV ATTEMPTED WITHOUT ESTABLISHMENT. OXYGEN INCREASED VIA NRB. TRANSPORTED TO [facility]. REASSESSED ENROUTE. REMAINS GCS 15 AND ALERT. V/S'S OBTAINED. H/R AND OXYGEN SATURATION IMPROVED. REPORT CALLED TO HOSPITAL. MOVED WITHOUT INCIDENT TO ER HOSPITAL BED 6. PT CARE TRANSFERRED TO ED RN. Initial Vitals @14:25P: 28,CO: 4,SpO2: 82, @PTAGCS: 15,Glucose: 326,SpO2: 80, @14:42P: 115,R: 20,BP: 148/87,Pain: 0/10,GCS: 15,SpO2: 97,Revised Trauma: 12, @14:22P: 132,R: 22,BP: 152/94,GCS: 15,Revised Trauma: 12, Assessments @14:17MENTAL:Place Oriented,Event Oriented,Time Oriented,Person Oriented,SKIN:HEENT:Head/Face: No Abnormalities,Neck/Airway: No Abnormalities,LUNG SOUNDS:General: No Abnormalities,ABDOMEN:General: No Abnormalities,PELVIS//GI:EXTREMITIES:Capillary Refill: Right Upper: < 2 Sec,Capillary Refill: Left Upper: < 2 Sec,Left Arm: No Abnormalities,Right Arm: No Abnormalities,Left Leg: No Abnormalities,Right Leg: No Abnormalities,PULSE:Radial: 2+ Normal,NEURO:No Abnormalities,@14:38MENTAL:No Abnormalities,SKIN:HEENT:Head/Face: No Abnormalities,Neck/Airway: No Abnormalities,LUNG SOUNDS:ABDOMEN:PELVIS//GI:EXTREMITIES:Capillary Refill: Right Upper: < 2 Sec,Capillary Refill: Left Upper: < 2 Sec,Left Arm: No Abnormalities,Right Arm: No Abnormalities,PULSE:Radial: 2+ Normal,NEURO: Impression Shortness of breath Procedures @14:26 3-Lead ECG Response: Unchanged @14:28 IV Therapy - Saline Lock cc (20 ga) Site: Hand-Left Response: UnchangedFailed @14:30 Oxygen FlowRate: 10 Device: Non Re-breather Mask (NRB) Response: ImprovedSucceeded @PTAOxygen FlowRate: 8 Device: Nasal Cannula (NC) Response: UnchangedFailed [address] [address] EMS Patient Care Report Name: MARTIN PIPER Room #: 215-P [facility] IN M.R.#: [id number] Admission: 12/25/21 Attend Phys: Rod Alexander DO Discharge: Date of : 34 Report #: [id number] @14:17 ALS Assessment Response: UnchangedSucceeded @14:20 Stretcher Response: Unchanged Timeline INSPECTOR MACHINED PARTS,Oxygen FlowRate: 8 Device: Nasal Cannula (NC) Response: UnchangedFailed, INSPECTOR MACHINED PARTS,BP: / M,PULSE: ,RR: R,SPO2: 80 Ox,ETCO2: ,B,PAIN: ,GCS: 15, 14:00,Call Received 14:00,Dispatch Notified 14:02,Dispatched 14:03,En Route 14:14,On Scene 14:16,At Patient 14:17,ALS Assessment,Response: UnchangedSucceeded, 14:20,Stretcher,Response: Unchanged 14:22,BP: 152/94 M,PULSE: 132,RR: 22 R,SPO2: Ox,ETCO2: ,BG: ,PAIN: ,GCS: 15, 14:25,BP: / M,PULSE: 28,RR: R,SPO2: 82 Ox,ETCO2: ,BG: ,PAIN: ,GCS: , 14:26,3-Lead ECG,Response: Unchanged 14:28,IV Therapy - Saline Lock cc 20 ga Site: Hand-Left,Response: UnchangedFailed, 14:30,Oxygen FlowRate: 10 Device: Non Re-breather Mask (NRB) Response: ImprovedSucceeded, 14:35,Depart Scene 14:42,BP: 148/87 M,PULSE: 115,RR: 20 R,SPO2: 97 Ox,ETCO2: ,BG: ,PAIN: 0,GCS: 15, 14:52,At Destination 15:09,Call Closed Disclaimer v1.1 Copyright 2021 [employer] This EMS Care Summary contains data elements from the applicable legal record (which may be displayed differently). It is designed to provide pertinent information for the following purposes: continuity of care, clinical quality, and state data reporting. The complete legal record is available to ED staff and administrators of the receiving hospital in [facility]'s Patient Tracker. All data is provided "as is."
[2021-12-25 14:55] VITALS: BP 133/72
[2021-12-25 15:36] LABS: BE(vivo) -6.7 mmol/L (-2 to +3); HCO3 17.3 mmol/L (22.0-26.0); PCO2 29.7 mmHg (35.0-45.0); pH 7.382 (7.360-7.450); sO2 97.9 % (92.0-98.0)
[2021-12-25 15:47] LABS: ABSOLUTE NEUTROPHILS 9.2 thou/uL (1.4-8.2); BASOPHILS 1.2 % (0.0-2.0); EOSINOPHILS 0.7 % (0.0-3.0); HEMATOCRIT 32.3 % (42.0-52.0); HEMOGLOBIN 10.6 gm/dL (14.0-18.0); MCH 30.8 pg (26.0-34.0); MCHC 32.7 g/dL (28.0-37.0); MCV 94.2 fL (80.0-100.0); MONOCYTES 4.5 % (1.0-8.0); PLATELET COUNT 266 thou/uL (150-400); POLYS 89.6 % (36.0-66.0); RBC 3.43 mil/uL (4.50-6.00); RDW 14.8 % (10.5-14.5); WBC 10.3 thou/uL (4.0-11.0)
[2021-12-25 15:53] LABS: CALCIUM 8.3 mg/dL (8.5-10.1); CREATININE 1.5 mg/dL (0.7-1.3); POTASSIUM 5.4 mmol/L (3.5-5.1)
[2021-12-25 16:03] LABS: ALBUMIN 2.1 g/dL (3.4-5.0); TOTAL BILIRUBIN 0.5 mg/dL (0.2-1.0)
[2021-12-25 16:12] LABS: INR 1.13; PROTIME 12.2 Seconds (10.5-12.1)
--- NOTE | 2021-12-25 20:08 | NUR ---
PAITIENT IS INCONTINENT IN ADULT PAD FOR A LARGE AMOUNT OF STRAW COLORED URINE IV ANTIBIOTICS ARE INFUSING VIA IV RT UPPER ARM SECOND IV IS INITIATED TO LEFT FORARM 20G AND SALINE LOCKED PATIENT IS ALERT AND ORIENTATED. INCREASED WORK OF BREATHING IS NOTED BUT IS TOLERATING BIPAP AT THIS TIME SPO2 97-99 PERCENT WITH FIO2 AT 70% MOUTH CARES ARE PROVIDED AND TOLERATED WELL. ATTEMPT TO CALL REPORT ON PATIENT TO CCU, QUESTION ABOUT BED PLACEMENT PER CCU STAFF. MY TABLE CUT OFF SAW OPERATOR IS ADVISED AND CALL PLACED TO NURSING SUPERVISION AND TO MARY GREER
--- NOTE | 2021-12-25 20:10 | NUR ---
ATTEMPT TO CALL REPORT, BUT CCU HAS QUESTIONS ABOUT BED PLACEMENT CALL PLACED TO NURSING SUPERVISION AND ED CHARGE NURSE MADE AWARE MARY FRANKLIN CHAR CONVEYOR TENDER CELLAR ALSO UPDATED PATIENT IS ADVISED ON PLAN OF CARE
--- NOTE | 2021-12-25 21:00 | NUR ---
PATIENT HAS PULLED BIPAP OFF AND HAS DESATURATED T0 60 PERCENT MOMENTARILY RT TO BEDSIDE AND PATIENT IS PLACED BACK ON BIPAP WITH IMMEDIATE RETURN OF SP2 TO 95 PERCENT PATIENT IS ALLOWED SIPS WATER PER ADMISSION PROVIDER AND SAME ARE PROVIDED CHARGE NURSE AND NURSING SUPERVISION ARE WORKING ON BED PLACEMENT
[2021-12-25 22:15] VITALS: BP 130/70
[2021-12-26] VITALS (13 sets, daily range): BP systolic 90–120; BP diastolic 45–62
[2021-12-26 00:30] LABS: HEMATOCRIT 29.3 % (42.0-52.0); HEMOGLOBIN 9.6 gm/dL (14.0-18.0); MCH 30.9 pg (26.0-34.0); MCHC 32.6 g/dL (28.0-37.0); MCV 94.6 fL (80.0-100.0); RBC 3.1 mil/uL (4.50-6.00); WBC 8.9 thou/uL (4.0-11.0)
[2021-12-26 00:49] LABS: ALBUMIN 1.8 g/dL (3.4-5.0); CALCIUM 8.3 mg/dL (8.5-10.1); CREATININE 1.5 mg/dL (0.7-1.3); POTASSIUM 5.3 mmol/L (3.5-5.1); TOTAL BILIRUBIN 0.4 mg/dL (0.2-1.0); TOTAL PROTEIN 6.3 g/dL (6.4-8.2)
--- NOTE | 2021-12-26 11:03 | NUR ---
PT ADMITTED FROM ER TO 325 AROUND 2240 PM FOR RESP FAILURE, AFIB RVR. PT ALERT AND ORIENTED X4. TACHYPNEIC 30 NOTED WHILE ON BIPAP INITIALLY UPON ARRIVAL. SAT 97%. RR DECREASED TO 24 OVERNIGHT RT TITRATED DOWN TO 65% FIO2 PER BIPAP. LATER PT HR INCREASED TO 130. SPEECH SCIENTIST NOTIFIED. LOVENOX DISCONTINUED, CARDIZEM 10MG IV BOLUS GIVEN . BP DROPPED TO MARGINAL 100-107/50-60S. SPEECH SCIENTIST NOTIFIED. SHE STATED TO START GTT AT 2.5MG. PT TOLERATED CARDIZEM AT 2.5 MG. HEPARIN GTT STARTED AFTER PTT CAME BACK. NO BOLUS GIVEN ORDERED. PT NPO EXCEPT SIPS OF WATER WITH MEDS. BED DOWN. CALL LIGHT IN REACH.BED ALARM ON.
--- NOTE | 2021-12-26 12:06 | NUR ---
A RIGHT #5F TRIPLE LUMEN PICC WAS PLACED PER HOSPITAL POLICY AFTER A BEDSIDE TIMEOUT WAS COMPLETED. THE 43CM LINE WAS ADVANCED TO 4CM EXTERNAL- CHEST XRAY ORDERED FOR CONFIRMATION
[2021-12-27] VITALS (8 sets, daily range): BP systolic 90–139; BP diastolic 50–78
--- NOTE | 2021-12-27 04:57 | NUR ---
PT IS NOT PROGRESSING TOWARD GOALS. REMAINS ON HEPARIN AND CARDIZEM GTTS. BLOOD PRESSURE HAS BEEN LOW THROUGHOUT THE SHIFT 90'S/40'S, CARDIOLOGY AWARE. HEPARIN TITRATED PER ORDERS. ON BIPAP 55% FOR MOST OF THE SHIFT, TITRATED UP TO 60%, MAINTAINING O2 SAT >90%. WILL CONTINUE TO OBSERVE FOR CHANGES.
[2021-12-27 05:38] LABS: URINE BILIRUBIN NEGATIVE (Negative); URINE BLOOD NEGATIVE (Negative); URINE CLARITY CLEAR; URINE COLOR YELLOW; URINE GLUCOSE-RANDOM* 2+ (Negative); URINE KETONES TRACE (Negative); URINE LEUKOCYTES-REFLEX NEGATIVE (Negative); URINE NITRITE-REFLEX NEGATIVE (Negative); URINE PROTEIN (DIPSTICK) 1+ (Negative); URINE SPECIFIC GRAVITY >= 1.030 (1.005-1.035); URINE UROBILINOGEN 0.2 E.U./dl (0.2-1.0)
[2021-12-27 05:48] LABS: COARSE GRANULAR CASTS 0-3 Few /LPF (None Seen); HYALINE CASTS 0-3 Few /LPF (None Seen); MUCUS 0-3 Light strn/LPF (None Seen); SQUAMOUS 0-3 Few /LPF (0-3)
[2021-12-27 05:49] LABS: BACTERIA-REFLEX None Seen /HPF (None Seen); CRYSTALS None Seen /LPF (None Seen); URINE RBC None Seen /HPF (NONE SEEN); URINE WBC-REFLEX None Seen /HPF (0-5)
[2021-12-27 06:15] LABS: HEMATOCRIT 39.7 % (42.0-52.0); MCH 29.3 pg (26.0-34.0); MCHC 30.9 g/dL (28.0-37.0); MCV 94.9 fL (80.0-100.0); RBC 4.18 mil/uL (4.50-6.00); RDW 15.7 % (10.5-14.5); WBC 10.1 thou/uL (4.0-11.0)
[2021-12-27 06:19] LABS: HEMOGLOBIN 12.22 gm/dL (14.0-18.0)
[2021-12-27 06:20] LABS: CREATININE 1.3 mg/dL (0.7-1.3); POTASSIUM 4.1 mmol/L (3.5-5.1)
--- NOTE | 2021-12-27 07:38 | EKG ---
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1935 Requested By: Shai Figueroa Order Number: [id number] MD: Art Almaguer Measurements Intervals [place] Rate: 118 P: HI: QRS: 43 QRSD: 100 T: 205 QT: 314 QTc: 441 Interpretive Statements Atrial fibrillation Repol abnrm, severe global ischemia (LM/MVD) Compared to ECG 12/11/2021 10:14:39 Early repolarization now present Possible ischemia now present Ventricular premature complex(es) no longer present ST (T wave) deviation no longer present Electronically Signed On 12-27-2021 7:37:48 ELECTRONICS MECHANIC by Art Almaguer [email or web address] <ELECTRONICALLY SIGNED> By: Art Almaguer MD, FACC 12/27/21 0737 [id number] Art Almaguer MD, [facility] /EPI
--- NOTE | 2021-12-27 11:30 | 2DMMODE ---
[facility] [place] [address] 2 D/M-MODE ECHOCARDIOGRAM Name: MARTIN PIPER Room #: 215-P ADM IN M.R.#: [id number] Admission: 12/25/21 Attend Phys: Rod Alexander DO Discharge: Date of : 34 Report #: [id number] THIS REPORT FOR: cc: Jacques Martinez MD, Christopher B. MD Lundgren, Craig H. MD [facility] ~ APPROVED REPORT Study performed: 12/27/2021 10:25:53 EXAM: Comprehensive 2D, Doppler, and color-flow Echocardiogram Patient Location: Bedside Room #: 215 Status: routine BSA: 1.94 HR: 124 bpm BP: 112/75 mmHg Rhythm: Atrial Fibrillation Other Information Study Quality: Technically Difficult Technically limited study due to lung disease, inability to position patient. Indications Congestive Heart Failure Diabetes Atrial Fibrillation Dyspnea CAD 2D Dimensions IVSd: 10.46 (7-11mm) LVOT Diam: 21.60 (18-24mm) LVDd: 57.17 mm PWd: 10.27 (7-11mm) Ascending Ao: 32.56 (22-36mm) LVDs: 48.93 (25-40mm) Left Atrium: 53.80 (27-40mm) Aortic Root: 34.59 mm IVC: 26.00 mm Volumes Left Atrial Volume (Systole) Single Plane 4CH: 69.91 mL Single Plane 2CH: 46.43 mL LA ESV Index: 33.00 mL/m2 [facility] [address] [place] [address] 2 D/M-MODE ECHOCARDIOGRAM Name: PIPER,MARTIN Room #: 215-P [facility] IN .R.#: [id number] Admission: 12/25/21 Attend Phys: Rod Alexander DO Discharge: Date of : 34 Report #: [id number] Aortic Valve AoV Peak Jt.: 0.75 m/s AO Peak Gr.: 2.23 mmHg LVOT Max P.81 mmHg LVOT Max V: 0.67 m/s PHILIP Vmax: 3.30 cm2 Pulmonary Valve PV Peak Jt.: 0.88 m/s PV Peak Gr.: 3.10 mmHg Left Ventricle Left ventricle is at the upper limits of normal. There is global hypokinesis of the left ventricle. There is normal left ventricular wall thickness. Left ventricular systolic function is moderate to severely decreased. LVEF 35%. Inferior, inferolateral, and inferoseptal akinesis This study is not technically sufficient to allow evaluation of the LV diastolic function due to atrial fibrillation. Right Ventricle The right ventricle is normal size. The right ventricular systolic function is normal. Atria Left atrium is dilated. The right atrium size is normal. Aortic Valve The aortic valve is mildly calcfied, trileaflet. No aortic regurgitation is present. There is no aortic valvular stenosis. Mitral Valve Mild mitral annular calcification Moderate mitral regurgitation. No evidence of mitral valve stenosis. Tricuspid Valve The tricuspid valve is normal in structure. Unable to assesss PA pressure. There is no tricuspid valve regurgitation noted. Pulmonic Valve The pulmonary valve is normal in structure. There is no pulmonic valvular regurgitation. Great Vessels The aortic root is normal in size. IVC is dilated and collapses <50% with inspiration. [facility] [address] [place] [address] 2 D/M-MODE ECHOCARDIOGRAM Name: MARTIN PIPER Room #: [facility] IN M.R.#: [id number] Admission: 12/25/21 Attend Phys: Rod Alexander DO Discharge: Date of : 34 Report #: [id number] Pericardium There is no pericardial effusion. <Conclusion> Left ventricular systolic function is moderate to severely decreased. LVEF 35%. Inferior, inferolateral, and inferoseptal akinesis Both atria are dilated. The aortic valve is mildly calcfied, trileaflet. No aortic regurgitation or stenosis Mild mitral annular calcification. Moderate mitral regurgitation. Unable to assesss pulmonary artery pressure. There is no pericardial effusion. <ELECTRONICALLY SIGNED> By: Bob Jackson MD, [facility] 12/27/21 1130 1130 1130 Bob Jackson MD, FACC /INF
--- NOTE | 2021-12-27 11:32 | NUR ---
GAVE PATIENT MEDICATION WITH BIPAP BEING OFF FOR LESS THAN 5 MINUTES. BIPAP REPLACED AND PATIENT STARTED TO HAVE DIFFICULTY WITH BREATHING. OBIPAP INCREASED TO 60% AND THEN TO 70%. DR. MO SAW PATIENT, RECOMMENDED GIVING MORPHINE EVEN THOUGH BP LOW. LASIX ORDERED D/T PATIENT SOUNDING WET ON THE LUNGS. NS DC'D ALSO. WILL CONTACT DR. MO ABOUT THE D5 THAT IS RUNNING. [facility]
--- NOTE | 2021-12-27 12:13 | NUR ---
I have reviewed the documentation by DREA FRAZIER from 12/27/21 to 12/27/21 and I concur with it. CHUCK GUEVARA, PT, DPT
--- NOTE | 2021-12-27 16:11 | NUR ---
PATIENT ADMITTED FOR RESP FAILURE AFIB. CHART REVIEWED AND DISCUSSED WITH CAEE TEAM. CM MET WITH PT THIS DAY. PT ON BIPAP AND DID NOT PARTICIPATE IN CM ASSESSMENT. PT RESTING WITH EYES CLOSED. CM SPOKE TO PTS FRIEND DOV AT BEDSIDE. HE INFORMED PT LIVES AT HOME WITH 29/05 CAREGIVER. HE REPORTS PT USES A WALKER OCC AT HOME. HE REPORTS PT HAS BEEN A PATIENT WITH [facility] IN THE PAST ALTHOUGH DOES NOT REMEMBER WHEN. PT FRIEND REPORTS HE WAS WORRIED AOBUT PT AND ASSESSMENT COMPLETED AT THAT TIME. CM AWAITING THERAPY RECOMMENDATIONS FOR DC PLANNING. CM FOLLOWING.
[2021-12-28 03:29] VITALS: BP 127/60
--- NOTE | 2021-12-28 04:02 | NUR ---
Assumed pt care at 1900. Pt is sleeping upon arrival to room but is arousable. Fall precautipn in place. Denies pain. Assessment completed and documented. Scheduled meds administered to pt. No acute even noted. Pt continues to be on BIPAP. No acute event noted in pt. No further needs at this time.
[2021-12-28 07:45] VITALS: BP 121/71
--- NOTE | 2021-12-28 09:06 | NUR ---
Assumed care of pt this AM. Pt on BiPap @ 90% FiO2, sating low 90s, high 80s. Pt sounding extremely wet. Paged provider to notify. Orders received & carried out. FiO2 on Bipap turned to 100% & RT notified. Pt son @ bedside & updated on plan of care at moment. Provider came down to unit to discuss w/ family & patient. Pt oriented to self & situation. Heparin gtt & cardizem gtt running thru JORGE PICC. Pt denying any current pain. Next APTT to be drawn at 1000. Afib on the monitor. Pt on bedrest. Pt w/ PRN morphine for air hunger. Frequent rounding in place.
--- NOTE | 2021-12-28 11:55 | NUR ---
Assumed care of pt this AM. Pt w/ SOA & difficulty breathing w/ Bipap @ 90% FiO2. Pt coarse w/ crackles. Provider notified & FiO2 increased to 100%, RT notified. Orders received & carried out. Pt family @ bedside & updated on plan of care. Pt to have hopsice eval today. PRN morphine for air hunger given as able. Pt is oriented x4, drowsy; Afib on the monitor w/ cardizem gtt going. Heparin gtt stopped post hospice eval per orders. Frequent rounding in place.
== END 2021-12-28 13:28 | disposition hospice, inpatient (51) | DRG 175 ==
LOC: ER 14:54 → 2N 19:53 → EROBS 19:53 → 2N 22:15
PROVIDERS: Emergency Medicine; Internal Medicine Pulmonary Disease; ADMIT Pediatrics; ATTEND Pediatrics
PROC: 5A09457 Assistance with Respiratory Ventilation, 24-96 Consecutive Hours, Continuous Positive Airway Pressure (ICD-10-PCS; principal; 2021-12-25)
PROC: 02H633Z Insertion of Infusion Device into Right Atrium, Percutaneous Approach (ICD-10-PCS; principal; 2021-12-25)
DX: I26.99 Other pulmonary embolism without acute cor pulmonale (principal); J96.01 Acute respiratory failure with hypoxia; I42.8 Other cardiomyopathies; N17.9 Acute kidney failure, unspecified; U09.9 Post COVID-19 condition, unspecified; I50.9 Heart failure, unspecified; I48.91 Unspecified atrial fibrillation; Z79.01 Long term (current) use of anticoagulants; Z20.822 Contact with and (suspected) exposure to COVID-19; Z66 Do not resuscitate; Z86.711 Personal history of pulmonary embolism; E03.9 Hypothyroidism, unspecified; Z95.1 Presence of aortocoronary bypass graft; I25.10 Atherosclerotic heart disease of native coronary artery without angina pectoris; E11.40 Type 2 diabetes mellitus with diabetic neuropathy, unspecified; Z79.4 Long term (current) use of insulin
CPT/HCPCS: 10078; 10081; 27000

== ENCOUNTER 2021-12-28 12:45 | Inpatient (IN) | payer OTHER ==
--- NOTE | 2021-12-28 14:47 | NUR ---
Pt on hospice care. Explained to pt & family at bedside about goals of medication & medication monitor. Pt understands & is in agreeance.
--- NOTE | 2021-12-29 08:33 | NUR ---
S. C. CONSULT [id number] COMPLETED BY THIS NETWORK ANALYST. THIS NETWORK ANALYST SPENT CONSIDERABLE TIME WITH DAUGHTER, SISTER AND MALE CAREGIVER FROM 1415 UNTIL 1600 HOURS WITH 3 DIFFERENT VISITS.
== END 2021-12-28 18:00 | DRG 189 ==
LOC: 2N 12:45
PROVIDERS: ADMIT Pediatrics; ATTEND Pediatrics
DX: J96.00 Acute respiratory failure, unspecified whether with hypoxia or hypercapnia (principal); I26.99 Other pulmonary embolism without acute cor pulmonale; Z66 Do not resuscitate; U09.9 Post COVID-19 condition, unspecified
CPT/HCPCS: 10797